=== PATIENT | male | born 1995 | race Caucasian/White ===

== ENCOUNTER 2016-06-13 22:53 | Emergency (ER) | payer BC ==
[~2016-06-13] VITALS: Ht 175.3 cm; Wt 85.5 kg
[~2016-06-13 22:53] MED LIST: ABILIFY5 MG PO; ADD MED; AMOXICILLIN 8751 TAB PO; CELEXA; DOXYCYCLINE 10100 MG PO; FLOMAX 0.40.4 MG/CAP PO; INTUNIV1 MG PO; LORTAB 5/500 501 TAB PO; NO HOME MEDICATIONS; NORCO 325 MG-51 TAB PO; NORCO 325 MG-7.1 TAB PO; NORTRIPTYLINE10 MG PO; OTC SLEEP MED; PERCOCET 325 MG1 TA2 PO; PREVACID 15MG15 M1 PO; VYVANSE PO; ZITHROMAX 250M250 MG PO; ZOFRAN 4MG T4 MG/TAB PO; [UNRECOGNIZED DRUG - OTHER]
[2016-06-13 22:57] VITALS: TEMP 97.4
[2016-06-13 23:34] LABS: BASO # 0.1 (0.0-0.2); BASO % 0.7 % (0.0-2.0); EOS # 0.3 (0.0-0.7); EOS % 1.9 % (0-4.0); GRAN # 12.7 (1.4-6.5); GRAN % 76.3 % (42.2-75.2); HEMATOCRIT 46.1 % (42.0-52.0); HEMOGLOBIN 15.5 g/dl (13.5-18.0); LYMPH # 2.2 (1.2-3.4); LYMPH % 12.9 % (20.0-51.0); MEAN CELL VOLUME 90 fl (80.0-100.0); MEAN CORPUSCULAR HEMOGLOBIN 30 pg (27.0-31.0); MEAN CORPUSCULAR HGB CONC 34 g/dl (33.0-37.0); MEAN PLATELET VOLUME 9.8 fl (7.4-10.4); MONO # 1.3 (0.1-0.6); MONO % 7.8 % (1.7-9.3); PLATELET COUNT 278 K/mm3 (130-400); RED BLOOD COUNT 5.15 M/mm3 (4.20-5.60); REDCELL DISTRIBUTION WIDTH-CV 12.8 % (11.5-14.5); WHITE BLOOD COUNT 16.6 K/mm3 (4.8-10.8)
[2016-06-13 23:44] LABS: ACETAMINOPHEN < 10 ug/mL (10-30); ANION GAP 13 mmol/L (7-16); BLOOD UREA NITROGEN 17 mg/dL (9-20); CALCIUM 9.3 mg/dL (8.4-10.2); CARBON DIOXIDE 27 mmol/L (22-30); CHLORIDE 104 mmol/L (98-107); CREATININE, serum 1.05 mg/dL (0.66-1.25); GLUCOSE 113 mg/dL (74-106); POTASSIUM 3.8 mmol/L (3.4-5.0); SALICYLATE < 1.0 mg/dL; SODIUM 144 mmol/L (137-145)
[2016-06-13 23:49] LABS: AMPHETAMINE URINE NEGATIVE; BARBITURATES URINE NEGATIVE; BENZODIAZEPINES URINE NEGATIVE; BUPRENORPHINE URINE NEGATIVE; METHADONE URINE NEGATIVE; OPIATES URINE NEGATIVE; OXYCODONE URINE NEGATIVE; PHENCYCLIDINE URINE NEGATIVE; PROPOXYPHENE URINE NEGATIVE; THC CANNABINOIDS URINE POSITIVE
[2016-06-14 02:38] VITALS: BP 117/80
[2016-06-14 07:05] VITALS: PULSE 90
== END 2016-06-14 07:07 ==
LOC: COL.ER 22:53
PROVIDERS: Emergency Medicine
DX: F31.2 Bipolar disorder, current episode manic severe with psychotic features (principal); R45.851 Suicidal ideations

== ENCOUNTER 2016-09-13 18:06 | Emergency (ER) | payer BC ==
[~2016-09-13] VITALS: Ht 165.1 cm; Wt 83.6 kg
[2016-09-13 18:07] VITALS: TEMP 97.9
[2016-09-13 18:33] LABS: BASO # 0.1 (0.0-0.2); BASO % 0.7 % (0.0-2.0); GRAN # 7.2 (1.4-6.5); GRAN % 52.3 % (42.2-75.2); HEMATOCRIT 48.6 % (42.0-52.0); HEMOGLOBIN 16.6 g/dl (13.5-18.0); LYMPH # 4.6 (1.2-3.4); LYMPH % 33.2 % (20.0-51.0); MEAN CELL VOLUME 88 fl (80.0-100.0); MEAN CORPUSCULAR HEMOGLOBIN 30 pg (27.0-31.0); MEAN CORPUSCULAR HGB CONC 34 g/dl (33.0-37.0); MEAN PLATELET VOLUME 9.8 fl (7.4-10.4); MONO # 0.9 (0.1-0.6); MONO % 6.4 % (1.7-9.3); PLATELET COUNT 348 K/mm3 (130-400); REDCELL DISTRIBUTION WIDTH-CV 12.7 % (11.5-14.5); WHITE BLOOD COUNT 13.7 K/mm3 (4.8-10.8)
[2016-09-13 18:47] LABS: ALANINE AMINOTRANSFERASE 28 U/L (21-72); ALKALINE PHOSPHATASE 60 U/L (50-136); ANION GAP 19 mmol/L (7-16); BILIRUBIN,TOTAL 1.8 mg/dL (0.0-1.0); BLOOD UREA NITROGEN 11 mg/dL (9-20); CALCIUM 9.8 mg/dL (8.4-10.2); CARBON DIOXIDE 20 mmol/L (22-30); CHLORIDE 103 mmol/L (98-107); CREATININE, serum 0.91 mg/dL (0.66-1.25); GLUCOSE 159 mg/dL (74-106); POTASSIUM 4.2 mmol/L (3.4-5.0); SODIUM 142 mmol/L (137-145); TOTAL PROTEIN 7.9 gm/dL (6.4-8.2)
[2016-09-13 18:48] LABS: ACETAMINOPHEN < 10 ug/mL (10-30); SALICYLATE < 1.0 mg/dL
[2016-09-13] MEDS ORDERED: LEXAPRO20 MG PO (19:13)
[2016-09-13] MEDS ORDERED: CELEXA10 MG (19:13)
[2016-09-13] MEDS ORDERED: KLONOPIN2 MG PO (19:28)
[2016-09-13] MEDS ORDERED: EFFEXOR 3737.5 MG/TA (19:29)
[2016-09-13 19:47] LABS: AMPHETAMINE URINE NEGATIVE; BARBITURATES URINE NEGATIVE; BENZODIAZEPINES URINE POSITIVE; BUPRENORPHINE URINE NEGATIVE; METHADONE URINE NEGATIVE; OPIATES URINE NEGATIVE; OXYCODONE URINE NEGATIVE; PHENCYCLIDINE URINE NEGATIVE; PROPOXYPHENE URINE NEGATIVE; THC CANNABINOIDS URINE POSITIVE
[2016-09-14 05:49] VITALS: BP 118/77; PULSE 63
== END 2016-09-14 05:45 ==
LOC: COL.ER 18:06
PROVIDERS: Emergency Medicine
DX: T14.91 Suicide attempt (principal); X83.8XXA Intentional self-harm by other specified means, initial encounter; Y92.003 Bedroom of unspecified non-institutional (private) residence as the place of occurrence of the external cause; R42 Dizziness and giddiness

== ENCOUNTER 2016-12-13 11:13 | Emergency (ER) | payer BC ==
[~2016-12-13] VITALS: Ht 175.3 cm; Wt 86.4 kg
[~2016-12-13 11:13] MED LIST changes: +CELEXA10 MG; +EFFEXOR 3737.5 MG/TA; +KLONOPIN2 MG PO; +LEXAPRO20 MG PO
[2016-12-13 11:24] VITALS: TEMP 97.8
[2016-12-13 13:17] LABS: PH 7 (5-8); SQUAMOUS EPITHELIAL None Seen /hpf; URINE APPEARANCE Clear; URINE BACTERIA None Seen /hpf; URINE BILIRUBIN Negative (NEGATIVE); URINE BLOOD Negative (NEGATIVE); URINE COLOR Straw; URINE GLUCOSE Negative (NEGATIVE); URINE KETONE Negative (NEGATIVE); URINE RBC 0-2 /hpf; URINE UROBILINOGEN Negative (NEGATIVE); URINE WBC 0-2 /hpf
[2016-12-13] MEDS ORDERED: NORCO 325 MG-51 TAB PO (13:50)
[2016-12-13] MEDS ORDERED: DOXYCYCLINE 10100 MG PO (13:50)
[2016-12-13 13:58] VITALS: BP 110/76; PULSE 62
[2016-12-13 15:06] LABS: CHLAMYDIA/TRACH by PCR Male NOT DETECTED; Neisseria Gon by PCR Male NOT DETECTED
== END 2016-12-13 14:04 | disposition home or self-care (01) ==
LOC: COL.ER 11:13
PROVIDERS: Family Medicine
DX: N45.3 Epididymo-orchitis (principal)
CPT/HCPCS: J1170; J2550

== ENCOUNTER 2017-05-28 18:43 | Emergency (ER) | payer BC ==
[~2017-05-28] VITALS: Ht 175.3 cm; Wt 84.1 kg
[2017-05-28 18:48] VITALS: BP 142/90; TEMP 97.6
[2017-05-28] MEDS ORDERED: FLEXERIL 1010 MG/TAB PO (20:53)
[2017-05-28 21:06] VITALS: PULSE 78
== END 2017-05-28 21:06 | disposition home or self-care (01) ==
LOC: COL.ER 18:43
DX: S06.0X9A Concussion with loss of consciousness of unspecified duration, initial encounter (principal); S33.9XXA Sprain of unspecified parts of lumbar spine and pelvis, initial encounter; F31.9 Bipolar disorder, unspecified; F12.90 Cannabis use, unspecified, uncomplicated; F17.290 Nicotine dependence, other tobacco product, uncomplicated; V29.3XXA Motorcycle rider (driver) (passenger) injured in unspecified nontraffic accident, initial encounter; Y93.55 Activity, bike riding

== ENCOUNTER 2019-06-06 09:34 | Emergency (ER) | payer BC ==
[~2019-06-06] VITALS: Ht 175.3 cm; Wt 109.1 kg
[~2019-06-06 09:34] MED LIST changes: +AMBIEN CR 12.12.5 MG PO; +CELEXA 20MG20 MG/TAB; +FLEXERIL 1010 MG/TAB PO; +LATUDA60 MG PO; +PAXIL 30MG30 MG PO
[2019-06-06 09:48] VITALS: TEMP 99.1
[2019-06-06] MEDS ORDERED: LATUDA80 MG PO (09:59)
[2019-06-06] MEDS ORDERED: PROZAC60 MG PO (10:00)
[2019-06-06 10:14] LABS: COLLECTION METHOD CLEAN CATCH
[2019-06-06 10:17] LABS: BASO # 0.1 (0.0-0.2); BASO % 0.7 % (0.0-2.0); EOS # 0.3 (0.0-0.7); EOS % 4.6 % (0-4.0); GRAN # 3.2 (1.4-6.5); GRAN % 47.1 % (42.2-75.2); HEMATOCRIT 46.8 % (42.0-52.0); HEMOGLOBIN 16.3 g/dl (13.5-18.0); LYMPH # 2.3 (1.2-3.4); LYMPH % 33.2 % (20.0-51.0); MEAN CELL VOLUME 93 fl (80.0-100.0); MEAN CORPUSCULAR HEMOGLOBIN 32 pg (27.0-31.0); MEAN CORPUSCULAR HGB CONC 35 g/dl (33.0-37.0); MEAN PLATELET VOLUME 9.5 fl (7.4-10.4); MONO % 14.1 % (1.7-9.3); PLATELET COUNT 234 K/mm3 (130-400); RED BLOOD COUNT 5.06 M/mm3 (4.20-5.60); REDCELL DISTRIBUTION WIDTH-CV 13.1 % (11.5-14.5)
[2019-06-06 10:20] LABS: MUCOUS Present /lpf; PH 6 (5-8); SQUAMOUS EPITHELIAL 0-2 /hpf; URINE APPEARANCE Clear; URINE BACTERIA None Seen /hpf; URINE BILIRUBIN Negative (NEGATIVE); URINE BLOOD 1+ (NEGATIVE); URINE COLOR Yellow; URINE GLUCOSE Negative (NEGATIVE); URINE KETONE Trace (NEGATIVE); URINE LEUKOCYTE ESTERASE Negative (NEGATIVE); URINE NITRATE Negative (NEGATIVE); URINE PROTEIN(semi-quant) 1+ (NEGATIVE); URINE RBC None Seen /hpf
[2019-06-06 10:31] LABS: ALBUMIN 4.9 gm/dL (3.5-5.0); BILIRUBIN,TOTAL 1.2 mg/dL (0.0-1.0); CALCIUM 9.3 mg/dL (8.4-10.2); CREATININE, serum 0.75 (0.66-1.25); POTASSIUM 3.7 mmol/L (3.4-5.0); TOTAL PROTEIN 8.8 gm/dL (6.4-8.2)
[2019-06-06] MEDS ORDERED: NORCO 325 MG-51 TAB PO (12:05)
[2019-06-06 12:11] VITALS: BP 138/79; PULSE 90
== END 2019-06-06 12:21 | disposition home or self-care (01) ==
LOC: COL.ER 09:34
PROVIDERS: Family Medicine
DX: R10.9 Unspecified abdominal pain (principal); F41.9 Anxiety disorder, unspecified
CPT/HCPCS: J2270; J2405; J7030; Q9967

== ENCOUNTER 2019-10-28 16:16 | Inpatient (IN) | payer BC, MEDICAID ==
[2019-10-28] VITALS (42 sets, daily range): BP systolic 118; BP diastolic 70; PULSE 84; TEMP 98.5; O2SAT 90–98
[~2019-10-28] VITALS: Ht 175.3 cm; Wt 98.5 kg
[~2019-10-28 16:16] MED LIST changes: +LATUDA80 MG PO; +PROZAC60 MG PO
[2019-10-28 17:34] LABS: INR 1.8 (0.8-3.0); PROTHROMBIN TIME 20.4 SECONDS (9.7-12.8)
[2019-10-28 17:35] LABS: BASO # 0.1 (0.0-0.2); BASO % 0.9 % (0.0-2.0); EOS # 0.2 (0.0-0.7); EOS % 1.8 % (0-4.0); GRAN % 72.8 % (42.2-75.2); HEMATOCRIT 41.6 % (42.0-52.0); LYMPH # 1.6 (1.2-3.4); LYMPH % 12.7 % (20.0-51.0); MEAN CELL VOLUME 92 fl (80.0-100.0); MEAN CORPUSCULAR HEMOGLOBIN 33 pg (27.0-31.0); MEAN CORPUSCULAR HGB CONC 36 g/dl (33.0-37.0); MEAN PLATELET VOLUME 10.3 fl (7.4-10.4); MONO # 1.4 (0.1-0.6); MONO % 11.2 % (1.7-9.3); PLATELET COUNT 132 K/mm3 (130-400); RED BLOOD COUNT 4.53 M/mm3 (4.20-5.60); REDCELL DISTRIBUTION WIDTH-CV 18.2 % (11.5-14.5)
[2019-10-28 17:42] LABS: ALANINE AMINOTRANSFERASE 112 U/L (4-49); ALBUMIN 3.7 gm/dL (3.5-5.0); ALCOHOL(ethanol),MEDICAL 183 mg/dL; ALKALINE PHOSPHATASE 225 U/L (50-136); ANION GAP 12 mmol/L (7-16); AST,SGOT 461 U/L (15-37); BILIRUBIN,TOTAL 7.3 mg/dL (0.0-1.0); C-REACTIVE PROTEIN 4.1 mg/dL (0.0-0.9); CALCIUM 8.5 mg/dL (8.4-10.2); CARBON DIOXIDE 30 mmol/L (22-30); CHLORIDE 94 mmol/L (98-107); CREATININE, serum 0.74 (0.66-1.25); GLUCOSE 115 mg/dL (74-106); LIPASE 112 U/L (23-300); POTASSIUM 3.1 mmol/L (3.4-5.0); SODIUM 137 mmol/L (137-145); TOTAL PROTEIN 8.5 gm/dL (6.4-8.2)
[2019-10-28 17:44] LABS: ACETAMINOPHEN < 10 ug/mL (10-30); BLOOD UREA NITROGEN < 2 mg/dL (9-20); SALICYLATE < 1.0 mg/dL
[2019-10-28 18:45] LABS: COLLECTION METHOD CLEAN CATCH
[2019-10-28 18:52] LABS: PH 7 (5-8); SQUAMOUS EPITHELIAL None Seen /hpf; URINE APPEARANCE Clear; URINE BACTERIA Rare /hpf; URINE BILIRUBIN Negative (NEGATIVE); URINE BLOOD Negative (NEGATIVE); URINE COLOR Yellow; URINE GLUCOSE Negative (NEGATIVE); URINE KETONE Negative (NEGATIVE); URINE LEUKOCYTE ESTERASE Negative (NEGATIVE); URINE NITRATE Negative (NEGATIVE); URINE PROTEIN(semi-quant) Negative (NEGATIVE); URINE RBC None Seen /hpf; URINE UROBILINOGEN >=4.0 mg/dL (NEGATIVE)
[2019-10-28 19:17] LABS: TRICYCLIC ANTIDEPRESS URINE NEGATIVE
--- NOTE | 2019-10-28 22:25 | NUR ---
PT ARRIVED IN UNIT, ALERT AND ORIENTED X 4, DENIES ANY THOUGHTS/PLANS OF HARMING SELF, COMPLAINS OF GENERALIZED PAIN 6/10, ON O2 2 LPM. VSS UPON ARRIVAL. PT AWARE OF NO VISITATION POLICY AND PT PLACED ON SI PRECAUTIONS. PT VERBALIZED UNDERSTANDING OF SI PRECAUTIONS BEING FOLLOWED/OBSERVED. ALL BELONGINGS LOCKED UP IN SAFE.
[2019-10-29] VITALS (503 sets, daily range): BP systolic 105–147; BP diastolic 66–98; PULSE 23–110; TEMP 98.2–99.5; O2SAT 90–100
--- NOTE | 2019-10-29 01:09 | NUR ---
PT SCORING 6 PER CIWA PROTOCOL, HAS NO MEDICATION ORDERED FOR CORRESPONDING SCORE. DR. PINEDA CALLED AND NOTIFIED, AND VERBALIZED HE WILL PUT ORDERS IN SOON HE CAN. AWAITING FOR ORDERS.
--- NOTE | 2019-10-29 04:57 | NUR ---
DR. PINEDA AT BEDSIDE.
--- NOTE | 2019-10-29 05:50 | NUR ---
GI DR AT BEDSIDE TO EVALUATE PT.
--- NOTE | 2019-10-29 06:43 | NUR ---
PT'S POTASSIUM AT 3.1, NO REPLACEMENT ORDERED AND NOT ON POTASSIUM PROTOCOL. UPON READING DR. PINEDA'S NOTE, PLANNING TO REPLACE POTASSIUM. WILL PASS THIS ALONG TO ONCOMING DAY SHIFT NURSE.
--- NOTE | 2019-10-29 07:39 | NUR ---
Call received from Dr. Fitzgerald to schedule patient for EGD today and to place routine EGD orders. Anesthesia notified as well as scheduling. Patient agreable to procedure.
--- NOTE | 2019-10-29 11:40 | NUR ---
Due to the patient's condition, Carpenter Supervisor Wooden Ship contacted the patient's mother, Jerri ([phone]) to complete intial intake. The patient lives in [place] with Jerri and his sister. The patient does not use DME and is independent with ADLs. The patient's PCP is Dr. Motta and patient receives medications from [facility]. The patient sees Dr. Brooklyn Kincaid with [facility] once a week. Jerri states the patient has been going to see her for about a year. The patient had a session yesterday, 10/[address] Kincaid set up for the patient to go to [place] in due to SI. However, Jerri reports since the patient come to the hospital the spot that was reserved for the patient was given away. Jerri would like the patient to go home at discharge, if able. SW will continue to follow.
--- NOTE | 2019-10-29 12:36 | NUR ---
Patient to endoscopy via bed and endo staff at 1043. Patient returned to IMCU via bed and endo staff at 1117. Patient alert and oriented. States pain is returning 6/10 and that he is thirsty but not other concerns at this time.
--- NOTE | 2019-10-29 14:09 | NUR ---
Wireless Architect staffed with the patient's nurse regarding the patient. Once the patient is medically cleared he will be screen by [facility] or [facility]. Will continue to follow.
--- NOTE | 2019-10-29 19:30 | NUR ---
PATIENT GOT TO THE FLOOR AROUND 1924.
--- NOTE | 2019-10-29 21:59 | NUR ---
VERIFIED WITH DUSTLESS OPERATOR ABOUT THE PATIENT WANTING TO MAKE A PHONE CALL. PATIENT CALLED HIS MOTHER WHILE THIS NURSE OBSERVED THE PHONE CALL. PATIENT WAS GIVEN A PAIN PILL AND SOME ATIVAN AND THEN TUCKED HIMSELF INTO BED.
[2019-10-30] VITALS (31 sets, daily range): BP systolic 124–142; BP diastolic 71–85; PULSE 72–118; TEMP 97.8–98.9
--- NOTE | 2019-10-30 01:58 | NUR ---
patient called out for some pain medication and something for nausea. patient was very neausis and asked for something to throw up in. patient just coughed really hard but nothing came up. zofran odt was given to help with the nausea and then ativan and dafne were given. will continue to monitor
--- NOTE | 2019-10-30 04:35 | NUR ---
AFTER RECIEVING ZOFRAN, NAUSEA SEEMED TO SUBSIDE. PATIENT STILL CONTINUES TO COMPLAIN ABOUT PAIN ALL OVER IN HIS BODY. PAIN MEDICATIONS ARE GIVEN WHEN ASKED SOON THEY ARE AVALIABLE TO BE GIVEN. PATIENT BLOOD PRESSURE HAS INCREASED SLIGHLY I BELIEVE DUE TO SOME PAIN THAT HE IS EXPERIENCING. PATIENT APPEARS TO BE SLEEPING BUT STATES THAT HE HAS BEEN AWAKE FOR SOME PARTS OF THE NIGHT DUE TO PAIN. PATIENT HAS IV THAT INFUSING WITH IV FLUIDS. PATIENT BELONGINGS ARE AT THE NURSES STATION. PATIENT IS IN A [facility]OWN. PATIENT DENIES ANY OTHER NEEDS AT THIS TIME. WILL REPORT OFF TO DAY SHIFT
[2019-10-30 06:55] LABS: BASO # 0.1 (0.0-0.2); BASO % 0.9 % (0.0-2.0); EOS # 0.3 (0.0-0.7); EOS % 2.5 % (0-4.0); GRAN # 7.1 (1.4-6.5); GRAN % 66.7 % (42.2-75.2); HEMATOCRIT 41.3 % (42.0-52.0); HEMOGLOBIN 14.3 g/dl (13.5-18.0); LYMPH # 2.2 (1.2-3.4); LYMPH % 20.3 % (20.0-51.0); MEAN CELL VOLUME 95 fl (80.0-100.0); MEAN CORPUSCULAR HEMOGLOBIN 33 pg (27.0-31.0); MEAN CORPUSCULAR HGB CONC 35 g/dl (33.0-37.0); MEAN PLATELET VOLUME 10.8 fl (7.4-10.4); MONO % 9.3 % (1.7-9.3); PLATELET COUNT 97 K/mm3 (130-400); RED BLOOD COUNT 4.33 M/mm3 (4.20-5.60); REDCELL DISTRIBUTION WIDTH-CV 19.2 % (11.5-14.5)
--- NOTE | 2019-10-30 07:00 | NUR ---
Pt resting in bed, awakens upon entry, denies needs, will continue ot monitor.
[2019-10-30 07:19] LABS: ALBUMIN 3.2 gm/dL (3.5-5.0); CALCIUM 8.6 mg/dL (8.4-10.2); CREATININE, serum 0.67 (0.66-1.25); MAGNESIUM 1.5 mg/dL (1.6-2.3); POTASSIUM 3.5 mmol/L (3.4-5.0); TOTAL PROTEIN 7.6 gm/dL (6.4-8.2)
[2019-10-30 07:22] LABS: INR 1.9 (0.8-3.0); PROTHROMBIN TIME 21.6 SECONDS (9.7-12.8)
--- NOTE | 2019-10-30 09:00 | NUR ---
Assessmetn charted. Pt reting in bed, c/o nausea but able to take PO well, PRN nausea meds given. Scored pt higher in CIWA protocol for nausea and being awake at night. Pt resting quietly, takin CL diet well. Very jaundiced. L inner arm wounds from pet pig noted and will notify physician. IVF to RA/C. Will continue to monitor.
--- NOTE | 2019-10-30 18:07 | NUR ---
Pt ahs rested off and on throughout day. Nausea persists, chronic back and arm pain persists. Resting often, sets off bed alarm to urinate. Did have auditory hallucinations this morning that have since resolved. Denies needs, will give bedside shift report to nightshift nurse who will resume care.
--- NOTE | 2019-10-30 21:02 | NUR ---
REPORT GIVEN TO DAVID CR
--- NOTE | 2019-10-30 22:10 | NUR ---
Pt awake- sitting up in bed- trying to stand at edge of bed- assisted to stand--using urinal- voided clear dark petrona urine. States he is in alot of pain in his muscles 11/21-will give roxicodone as ordered-also on detox-will give 1 mg Ativam at this time also-- IV fluids continue at 75cc/hr- Flat affect, answers questions appropriately--Lung sounds clear, denies SOB.
[2019-10-31] VITALS (26 sets, daily range): BP systolic 121–142; BP diastolic 64–89; PULSE 79–108; TEMP 97.7–99.1
--- NOTE | 2019-10-31 06:00 | NUR ---
Overall a quiet night, is getting the p.o Roxicodone for muscle pain every 4 hrs prn. On detox protocol, was given Ativan x2 this shift based on score. On suicide precautions-with 15 min checks. Continues with IV fluids of NS a 75cc/hr. Did void per urinal- very dark/orange/brown color this morning.
[2019-10-31 07:38] LABS: BASO # 0.1 (0.0-0.2); BASO % 0.6 % (0.0-2.0); EOS # 0.3 (0.0-0.7); EOS % 2.9 % (0-4.0); GRAN # 7.6 (1.4-6.5); GRAN % 65.8 % (42.2-75.2); HEMATOCRIT 38.2 % (42.0-52.0); HEMOGLOBIN 13.3 g/dl (13.5-18.0); LYMPH # 2.3 (1.2-3.4); MEAN CELL VOLUME 96 fl (80.0-100.0); MEAN CORPUSCULAR HEMOGLOBIN 33 pg (27.0-31.0); MEAN CORPUSCULAR HGB CONC 35 g/dl (33.0-37.0); MEAN PLATELET VOLUME 11.4 fl (7.4-10.4); MONO # 1.2 (0.1-0.6); MONO % 10.3 % (1.7-9.3); PLATELET COUNT 86 K/mm3 (130-400); RED BLOOD COUNT 3.99 M/mm3 (4.20-5.60); REDCELL DISTRIBUTION WIDTH-CV 19.5 % (11.5-14.5)
[2019-10-31 07:50] LABS: BILIRUBIN,TOTAL 10.2 mg/dL (0.0-1.0); CALCIUM 8.6 mg/dL (8.4-10.2); CREATININE, serum 0.72 (0.66-1.25); TOTAL PROTEIN 7.2 gm/dL (6.4-8.2)
--- NOTE | 2019-10-31 08:10 | NUR ---
PT ALERT AND ORIENTED X4. PT REPORTS MUSCLE ACHES AND HEADACHE. FRESH ICE WATER BROUGHT IN TO PT, MEDICATIONS GIVEN, PAIN MEDICATION GIVEN, FLUSHED PT IV, ASSESSMENT PERFORMED. PT HAS TREMOR WITH ARM EXTENDED. PT HAS FLAT AFFECT.
--- NOTE | 2019-10-31 10:29 | NUR ---
PT REPORTING INC MUSCLE PAIN AND HEADACHES AND NAUSEA. ZOFRAN GIVEN, VITALS TAKEN, ATIVAN GIVEN. NO OTHER NEEDS AT THIS TIME.
--- NOTE | 2019-10-31 17:18 | NUR ---
PT TAKEN OFF Q15 CHECKS PER PHYSICIAN ORDERS. PT LAID IN BED ALL DAY WITH WINDOWS CLOSED AND LIGHTS OFF. PT HAS FLAT AFFECT PRESENT. PT REQUESTING PAIN MEDICATION WHENEVER DUE, PT REPORTS NO RELIEF WITH PHARMACOLOGICAL INTERVENTION. PT REPORTED NAUSEA EARLIER IN SHIFT NOT RELIEVED BY ZOFRAN, BUT EVENTUALLY WENT AWAY. PT HAS GOOD PO INTAKE OF FLUIDS. PT TALKED TO HIS MOTHER TODAY. NO OTHER NEEDS AT THIS TIME.
[2019-11-01] VITALS (16 sets, daily range): BP systolic 110–136; BP diastolic 62–84; PULSE 80–99; TEMP 97.7–99.5
--- NOTE | 2019-11-01 05:42 | NUR ---
PATIENT HAD AN UNEVENTFUL NIGHT. PATIENT RECIEVED ATIVAN X2 DURING THE SHIFT. PATIENT HAS A VERY SOMBER AFFECT. PATIENT REPORTED ALL OVER BODY PAIN AND PRN MARILUZ WAS GIVEN TO HIM. PATIENT HAS REMAINED ALERT AND ORIENTATED. PATIENT IS NPO FOR A TEST THIS MORNING. DENIES ANY OTHER NEEDS, WILL REPORT OFF TO DAY SHIFT.
[2019-11-01 06:43] LABS: BASO # 0.1 (0.0-0.2); BASO % 0.9 % (0.0-2.0); EOS # 0.3 (0.0-0.7); GRAN # 7.2 (1.4-6.5); GRAN % 65.6 % (42.2-75.2); HEMATOCRIT 38.5 % (42.0-52.0); HEMOGLOBIN 13.2 g/dl (13.5-18.0); LYMPH # 1.9 (1.2-3.4); LYMPH % 17.4 % (20.0-51.0); MEAN CELL VOLUME 98 fl (80.0-100.0); MEAN CORPUSCULAR HEMOGLOBIN 33 pg (27.0-31.0); MEAN CORPUSCULAR HGB CONC 34 g/dl (33.0-37.0); MEAN PLATELET VOLUME 12.1 fl (7.4-10.4); MONO # 1.4 (0.1-0.6); MONO % 12.6 % (1.7-9.3); PLATELET COUNT 110 K/mm3 (130-400); RED BLOOD COUNT 3.95 M/mm3 (4.20-5.60); REDCELL DISTRIBUTION WIDTH-CV 20.3 % (11.5-14.5)
[2019-11-01 07:40] LABS: ALBUMIN 2.8 gm/dL (3.5-5.0); BILIRUBIN,TOTAL 9.3 mg/dL (0.0-1.0); CALCIUM 8.5 mg/dL (8.4-10.2); CREATININE, serum 0.64 (0.66-1.25); MAGNESIUM 1.7 mg/dL (1.6-2.3); TOTAL PROTEIN 6.8 gm/dL (6.4-8.2)
--- NOTE | 2019-11-01 12:06 | NUR ---
PT RESTING IN BED LIGHTS LOW.VSS PT DENIES NEEDS.
--- NOTE | 2019-11-01 14:52 | NUR ---
PT CONTINUES TO SHOW DEPRESSIVE BEHAVIOR WANTING TO SLEEP AND REFUSING MEALS.
--- NOTE | 2019-11-01 22:30 | NUR ---
Pt assessment completed and charted, alert and oriented, 2 liter oxygen on NC. I/V is running without complications. Meds provided as per JUN,tolerated well. No N/V/D, numbness, tingling, SOB at this time. Settled on his bed, call light on reach. Pt seems hegitated to have eye contact. Gave PRN pain meds on pt request. No further needs at this time.
[2019-11-02] VITALS (16 sets, daily range): BP systolic 115–137; BP diastolic 61–88; PULSE 84–104; TEMP 97.2–99.9
--- NOTE | 2019-11-02 06:43 | NUR ---
Pt had an uneventful night, slept on and off. Provided morning meds along with PRN pain meds on pt request. No further needs at this time.
[2019-11-02 06:58] LABS: HEMATOCRIT 37.4 % (42.0-52.0); HEMOGLOBIN 13.1 g/dl (13.5-18.0); MEAN CELL VOLUME 95 fl (80.0-100.0); MEAN CORPUSCULAR HEMOGLOBIN 33 pg (27.0-31.0); MEAN CORPUSCULAR HGB CONC 35 g/dl (33.0-37.0); MEAN PLATELET VOLUME 11.2 fl (7.4-10.4); PLATELET COUNT 90 K/mm3 (130-400); RED BLOOD COUNT 3.93 M/mm3 (4.20-5.60); REDCELL DISTRIBUTION WIDTH-CV 20.2 % (11.5-14.5)
[2019-11-02 07:26] LABS: ALBUMIN 2.8 gm/dL (3.5-5.0); BILIRUBIN,TOTAL 8.7 mg/dL (0.0-1.0); CALCIUM 8.5 mg/dL (8.4-10.2); CREATININE, serum 0.69 (0.66-1.25); POTASSIUM 4.2 mmol/L (3.4-5.0); TOTAL PROTEIN 6.8 gm/dL (6.4-8.2)
[2019-11-02 07:29] LABS: BAND 14 % (0-10); BASOPHIL 1 % (0-2); EOSINOPHIL 3 % (0-4); LYMPHOCYTE 21 % (20.0-51.0); METAMYELOCYTE 1 % (0-0); NEUTROPHILS 53 % (42.0-75.2); PLATELET ESTIMATE DECREASED (NORMAL); TARGET CELLS 1+
--- NOTE | 2019-11-02 07:29 | NUR ---
Report given to DAVID Kasper.
--- NOTE | 2019-11-02 09:17 | NUR ---
Assessment complete. Patient laying in bed resting on entry but sat up to speak with me. States he feels better than he did this morning. Reports some pain still on his right side that radiates down his leg and a little up his right arm, PRN pain medication has been provided for this. IV site is CD&I, IV fluids infusing at this time. Patient is alert and oriented x4. No visible tremors on assessment or notable anxiety. Patient was conversational and made moderate eye contact while speaking with me. Bed alrm is set, suicide and fall precautions are in place. No other needs were expressed at this time. Call light is in reach.
--- NOTE | 2019-11-02 09:31 | NUR ---
Patient did refuse breakfast but requested a protein shake as he prefers these. This was provided, needs met.
--- NOTE | 2019-11-02 12:14 | NUR ---
Patient called reporting pain and nausea. PRN pain and nausea medication was provided for this. Left arm laceration/scab was cleansed with saline and redressed. New dressing is CD&I, no pain reported. Vitals assessed. No anxiety present, tremors are also absent. No other needs at this time. Call light is in reach. Bed alarm set.
--- NOTE | 2019-11-02 18:05 | NUR ---
Patient has had a good day. PRN pain and nausea medication were given throughout the day for abdominal pain and episodes of nausea. Otherwise patient was relatively conversational with me. Pulse remains in the 90s but other vitals are stable. No visible signs of detox at this time. No suicidal behaviors or conversation. Mother has been updated over phone, patient also spoke with her using my phone. No other complaints from patient. Bowel prep has been administered, patient is aware to sip throughout the evening, finishing by 0000 is ideal but reminded him not to chug and make him self sick. No other requests at this time. Call light is in reach.
--- NOTE | 2019-11-02 20:30 | NUR ---
Initial shift assessment done- states abd pain about 7/10 most of the time, VSS. 02 at 2l/NC, up to bathroom with assist, having loose stools, on bowel prep, having colonoscopy in the AM,, Tele on, on detox protocol, scoring 2-3, no ativan given, on suicide precautions, close to desk-
[2019-11-03] VITALS (17 sets, daily range): BP systolic 115–155; BP diastolic 61–82; PULSE 59–93; TEMP 98–98.5
--- NOTE | 2019-11-03 01:00 | NUR ---
Has finished bowel prep- has been up to bathroom numerous times, stools clear at this time- NPO
--- NOTE | 2019-11-03 05:33 | NUR ---
Up to bathroom numerous times- stools clear. VSS, did not require any detox meds tonight, was given pain meds x2 for abd pain. NPO
[2019-11-03 07:06] LABS: HEMATOCRIT 37.1 % (42.0-52.0); HEMOGLOBIN 13.1 g/dl (13.5-18.0); MEAN CELL VOLUME 95 fl (80.0-100.0); MEAN CORPUSCULAR HEMOGLOBIN 34 pg (27.0-31.0); MEAN CORPUSCULAR HGB CONC 35 g/dl (33.0-37.0); MEAN PLATELET VOLUME 11.3 fl (7.4-10.4); PLATELET COUNT 97 K/mm3 (130-400); RED BLOOD COUNT 3.89 M/mm3 (4.20-5.60); REDCELL DISTRIBUTION WIDTH-CV 20.8 % (11.5-14.5)
[2019-11-03 07:09] LABS: INR 2.1 (0.8-3.0); PROTHROMBIN TIME 23.5 SECONDS (9.7-12.8)
[2019-11-03 07:15] LABS: ALBUMIN 2.9 gm/dL (3.5-5.0); BILIRUBIN,TOTAL 8.4 mg/dL (0.0-1.0); CALCIUM 8.5 mg/dL (8.4-10.2); CREATININE, serum 0.65 (0.66-1.25); POTASSIUM 3.7 mmol/L (3.4-5.0); TOTAL PROTEIN 6.9 gm/dL (6.4-8.2)
--- NOTE | 2019-11-03 08:02 | NUR ---
Assessment complete. Patient laying in bed on ebtry, easily arousable sleep. States he feels better than he did yesterday. Conversational this morning as he was yesterday. Latent mood and flat affect continue but patient makes eye contact while speaking and is cooperative. IV site is CD&I, IVF continue to infuse at this time. Patient is aware of his POC and plan for colonoscopy today. Pt has had one bowel movement already this morning, ambulated well. Patient currently back in bed resting until procedure. Call light is in reach, bed alarm is set. No other needs at this time.
[2019-11-03 08:31] LABS: ANISOCYTOSIS 1+; BAND 4 % (0-10); EOSINOPHIL 6 % (0-4); LYMPHOCYTE 28 % (20.0-51.0); NEUTROPHILS 49 % (42.0-75.2); PLATELET ESTIMATE DECREASED (NORMAL)
--- NOTE | 2019-11-03 10:06 | NUR ---
Patient arrived back from colonoscopy at this time. He is awake and alert, still droswy. Requested to use the restroom on arrival, I assisted with this. He ambulated well vua standby. New gown as provided as previous one was soiled. Vital signs are being monitored at this time. Will continue to monitor.
--- NOTE | 2019-11-03 10:45 | NUR ---
Property Handler met with the patient to discuss the discharge plan. The patient plans to return home. The patient states he see psychiatrist Gabe Florentino for medications. The patient states he has seen Dr. Motta in the past and would like to return there for primary care. IMANI contacted Dr. Motta office. The patient's appointment is set up for , November 10 at 12:15 check in time. IMANI informed infantry unit leader of appointment time. Will continue to follow.
--- NOTE | 2019-11-03 11:42 | NUR ---
Patient has been stable since arriving back from colonoscopy. Has been resting since recieving PRN pain medication earlier. Continuing to monitor, no other needs at this time. Call light is in reach. Bed alarm is set.
--- NOTE | 2019-11-03 16:51 | NUR ---
Patient has continued to rest for most of the day today. PRN pain medication was given when requested per orders, this manages his pain to a satisfactory degree. Patient was under the impression that he was supposed to go home today. I reminded him that when Dr. Swain spoke with him this morning he stated reching his labs in the morning and then possible discharge tomorrow. He was okay with this. I notified him that [facility] will be speaking with him via the Ipad for a consult later today, he agreed to this. Vitals have been stable, no tremors or obvious signs of detox. No other needs were expressed at this time. Call light is in reach. Bed alarm is set.
--- NOTE | 2019-11-03 20:50 | NUR ---
Pt assessment completed and documented. Pt resting in bed at this time. Pt alert and oriented x4. Complaints of generalized pain. PRN roxicodone given per orders per pt request. INT to right ac patent and intact. Pt refusing to eat dinner. Pt incontinent bowel on the floor on his way to the bathroom earlier in the evening. Pt on 2L O2 via nasal cannula. Pt denies any other needs. Call light within reach. Will continue to monitor.
[2019-11-04] VITALS (13 sets, daily range): BP systolic 90–138; BP diastolic 56–82; PULSE 67–82; TEMP 97.5–98.7
--- NOTE | 2019-11-04 05:20 | NUR ---
Pt had uneventful shift. Pt rested well throughout the night in his bed. VSS. On telemetry. Complaints of generalized pain last night- PRN roxicodone given per orders. Pt denies any other needs. Call light within reach.
[2019-11-04 09:02] LABS: BASO % 0.5 % (0.0-2.0); EOS % 0.1 % (0-4.0); GRAN % 73.8 % (42.2-75.2); HEMATOCRIT 37.8 % (42.0-52.0); HEMOGLOBIN 13.4 g/dl (13.5-18.0); LYMPH % 11.9 % (20.0-51.0); MEAN CELL VOLUME 94 fl (80.0-100.0); MEAN CORPUSCULAR HEMOGLOBIN 33 pg (27.0-31.0); MEAN CORPUSCULAR HGB CONC 35 g/dl (33.0-37.0); MEAN PLATELET VOLUME 10.9 fl (7.4-10.4); MONO % 12.8 % (1.7-9.3); PLATELET COUNT 112 K/mm3 (130-400); RED BLOOD COUNT 4.03 M/mm3 (4.20-5.60); REDCELL DISTRIBUTION WIDTH-CV 20.7 % (11.5-14.5)
[2019-11-04 09:12] LABS: BILIRUBIN,TOTAL 8.3 mg/dL (0.0-1.0); CALCIUM 8.7 mg/dL (8.4-10.2); CREATININE, serum 0.6 (0.66-1.25); POTASSIUM 3.9 mmol/L (3.4-5.0); TOTAL PROTEIN 7.2 gm/dL (6.4-8.2)
[2019-11-04 09:15] LABS: PROTHROMBIN TIME 22.1 SECONDS (9.7-12.8)
--- NOTE | 2019-11-04 10:51 | NUR ---
The patient was screened by Simi from [facility] on 11/02. A copy of the screen was placed in the patient's chart and they made a safety plan that he needed to sign. IMANI met with the patient to review the safety plan and he signed the form. IMANI faxed the form to [facility] and gave a copy to the patient. Original was placed in the chart. Will continue to monitor.
--- NOTE | 2019-11-04 12:13 | NUR ---
PATIENT IS RESTING IN BED, DID ASSIST PATIENT TO THE RESTROOM, WAS NOTIFIED TO GO TO PATIENTS ROOM BY BED ALARM BEING SET OFF. HE AMBULAED TO THE RESTOOM WITH STANDBY ASSISTANCE. DENIES PAIN. CALL LIGHT AND PERSONAL ITEMS ARE WITHIN REACH.
--- NOTE | 2019-11-04 18:29 | NUR ---
PATIENT IS RESTING IN BED ON LEFT SIDE. EYES ARE CLOSED, GRANDMOTHER DID CALL AND SPEAK WITH PATIENT ON A CORDLESS PHONE. NO OTHER NEEDS IDENTIFIED. CALL LIGHT IS WITHIN REACH.
--- NOTE | 2019-11-04 18:48 | NUR ---
ATTEMPTED TO REVIEW HOME MEDICATIONS WITH PATIENT AND HE IS UNSURE, ATTEMPTED TO REACH OUT TO FAMILY AND NO ANSWER RECEIVED.
--- NOTE | 2019-11-04 20:30 | NUR ---
Initial shift assessment done- states abd pain 10/21,,will give roxicodone as ordered, states feels like he is starting to get hungry, did not eat his clear liquid tray--states" Im tired of jello",,Up to bathroom with assist, still somewhat weak,,VSS, not scoring on detox protocol. Pt states he might go home tomorrow
[2019-11-05 00:48] VITALS: BP 116/68; PULSE 66; TEMP 98.3
[2019-11-05 01:09] VITALS: BP 116/73; PULSE 63; TEMP 98.3
[2019-11-05 04:11] VITALS: BP 104/67; PULSE 58; TEMP 97.7
[2019-11-05 06:05] VITALS: PULSE 62
--- NOTE | 2019-11-05 06:05 | NUR ---
Quiet night- only scoring a 1 on detox protocol- no ativan given, was given Roxicodone just once at start of shift for abd pain- voiding good amounts dark urine.
[2019-11-05 07:30] VITALS: BP 118/70; PULSE 63; TEMP 98.7
[2019-11-05 07:48] LABS: INR 1.6 (0.8-3.0); PROTHROMBIN TIME 18.2 SECONDS (9.7-12.8)
[2019-11-05 07:50] LABS: BASO % 0.3 % (0.0-2.0); EOS % 0.1 % (0-4.0); HEMATOCRIT 39.2 % (42.0-52.0); HEMOGLOBIN 13.7 g/dl (13.5-18.0); LYMPH # 1.5 (1.2-3.4); LYMPH % 14.8 % (20.0-51.0); MEAN CELL VOLUME 94 fl (80.0-100.0); MEAN CORPUSCULAR HEMOGLOBIN 33 pg (27.0-31.0); MEAN CORPUSCULAR HGB CONC 35 g/dl (33.0-37.0); MEAN PLATELET VOLUME 10.9 fl (7.4-10.4); MONO # 1.3 (0.1-0.6); MONO % 13.2 % (1.7-9.3); PLATELET COUNT 156 K/mm3 (130-400); RED BLOOD COUNT 4.19 M/mm3 (4.20-5.60); REDCELL DISTRIBUTION WIDTH-CV 21.1 % (11.5-14.5)
[2019-11-05 07:53] LABS: ALBUMIN 3.2 gm/dL (3.5-5.0); BILIRUBIN UNCONJUGATED 3.6 mg/dL (0.0-1.1); BILIRUBIN,DIRECT 3.6 mg/dL (0.0-0.4); BILIRUBIN,TOTAL 7.1 mg/dL (0.0-1.0); CREATININE, serum 0.67 (0.66-1.25); POTASSIUM 3.9 mmol/L (3.4-5.0); TOTAL PROTEIN 7.7 gm/dL (6.4-8.2)
--- NOTE | 2019-11-05 09:41 | NUR ---
The patient is to discharge home today, 11/04. The patient's grandmother will pick him up at 1400. The patient is to have a tele-health appointment with Psychiatrist, Dr. Florentino at approximately 4PM. There are no additional needs at this time.
[2019-11-05] MEDS ORDERED: FOLIC ACID 11 MG/TA1 PO (09:44)
[2019-11-05] MEDS ORDERED: THEREMS1 TAB PO (09:45)
[2019-11-05] MEDS ORDERED: PREDNISOLO15 MG/5 M3 PO (09:48)
[2019-11-05 11:47] VITALS: BP 112/67; PULSE 65; TEMP 98.6
--- NOTE | 2019-11-05 14:35 | NUR ---
PATIENT DC TO HOME VIA PRIVATE VEHICLE ACCOMPANIED BY GRANDMOTHER MORTGAGE CLOSING CLERK. PRINTED DC INSTRUCTIONS TO INCLUDE FOLLOW UP, CRISIS INTERVENTION, MEDICATIONS, AND HOSPITAL DISCHARGE DC REVIEWED WITH PATIENT. ALL QUESTIONS AND CONCERNS ADDRESSED DURING REVIEW. ACKNOWLED UNDERSTANDING AND DENIED QUESTIONS OR CONCERNS AFTER REVIEW. AMBULATED OFF UNIT TO VEHICLE ACCOMPANIED OUT OF BUILDING BY THIS NURSE.
== END 2019-11-05 14:00 | disposition home or self-care (01) | DRG 432 ==
LOC: COL.ER 16:16 → IMCU 20:29 → MEDICAL 20:29
PROVIDERS: Emergency Medicine; Family Medicine; Internal Medicine; Internal Medicine Gastroenterology; Physician Assistant; Student in an Organized Health Care Education/Training Program
PROC: 0DJ08ZZ Inspection of Upper Intestinal Tract, Via Natural or Artificial Opening Endoscopic (ICD-10-PCS; principal; 2019-10-29 11:00)
PROC: 0DJD8ZZ Inspection of Lower Intestinal Tract, Via Natural or Artificial Opening Endoscopic (ICD-10-PCS; 2019-11-03)
DX: K70.10 Alcoholic hepatitis without ascites (principal); K29.21 Alcoholic gastritis with bleeding; E44.0 Moderate protein-calorie malnutrition; D68.2 Hereditary deficiency of other clotting factors; F10.239 Alcohol dependence with withdrawal, unspecified; R45.851 Suicidal ideations; K71.0 Toxic liver disease with cholestasis; D69.6 Thrombocytopenia, unspecified; E87.6 Hypokalemia; K21.0 Gastro-esophageal reflux disease with esophagitis; R09.02 Hypoxemia; F41.9 Anxiety disorder, unspecified; K52.9 Noninfective gastroenteritis and colitis, unspecified; E83.42 Hypomagnesemia; F31.9 Bipolar disorder, unspecified; F13.10 Sedative, hypnotic or anxiolytic abuse, uncomplicated; Y90.6 Blood alcohol level of 120-199 mg/100 ml; E88.09 Other disorders of plasma-protein metabolism, not elsewhere classified; Z68.31 Body mass index [BMI] 31.0-31.9, adult
CPT/HCPCS: 99223-AI; 99232-AI; 99233-AI; C9113; J0780; J1170; J1200; J2060; J2250; J2405; J2704; J3010; J3411; J3475; J7030; J7510; Q9967

== ENCOUNTER 2020-01-22 16:21 | Inpatient (IN) | payer BC, MEDICAID ==
[~2020-01-22] VITALS: Ht 175.3 cm; Wt 94.9 kg
[~2020-01-22 16:21] MED LIST changes: +FOLIC ACID 11 MG/TA1 PO; +PREDNISOLO15 MG/5 M3 PO; +THEREMS1 TAB PO
[2020-01-22 16:53] LABS: HEMATOCRIT 42.9 % (42.0-52.0); HEMOGLOBIN 15.6 g/dl (13.5-18.0); MEAN CELL VOLUME 93 fl (80.0-100.0); MEAN CORPUSCULAR HEMOGLOBIN 34 pg (27.0-31.0); MEAN CORPUSCULAR HGB CONC 36 g/dl (33.0-37.0); MEAN PLATELET VOLUME 10.4 fl (7.4-10.4); PLATELET COUNT 137 K/mm3 (130-400); RED BLOOD COUNT 4.64 M/mm3 (4.20-5.60); REDCELL DISTRIBUTION WIDTH-CV 15.2 % (11.5-14.5)
[2020-01-22 16:56] LABS: PROTHROMBIN TIME 22.9 SECONDS (9.7-12.8)
[2020-01-22 17:03] LABS: ALBUMIN 3.8 gm/dL (3.5-5.0); BILIRUBIN,TOTAL 9.1 mg/dL (0.0-1.0); C-REACTIVE PROTEIN 2.6 mg/dL (0.0-0.9); CALCIUM 8.7 mg/dL (8.4-10.2); CREATININE, serum 0.85 (0.66-1.25); TOTAL PROTEIN 8.4 gm/dL (6.4-8.2)
[2020-01-22 17:33] LABS: EOSINOPHIL 2 % (0-4); LYMPHOCYTE 7 % (20.0-51.0); NEUTROPHILS 77 % (42.0-75.2)
[2020-01-22 17:35] LABS: PLATELET ESTIMATE NORMAL (NORMAL); TEAR DROP CELLS 1+
--- NOTE | 2020-01-22 21:59 | NUR ---
Received report from ED DAVID Cervantes.
--- NOTE | 2020-01-22 22:13 | NUR ---
Pt arrived to medical unit room 356 via stretcher.
[2020-01-22 22:18] VITALS: BP 126/69; PULSE 97; TEMP 98.4
--- NOTE | 2020-01-22 22:30 | NUR ---
Pt settled in room. a/o x4. Verbal, ambulatory. States pain to lower back, rate 3-4/10 at this time. Denies abdominal pain or nausea at this time. IVF started as ordered. IV to RAC flushed w/o compliations, dressing CDI. Ordered meds given. Tele monitor placed. CIWA protocol in place, informed pt of protocol and verbalized understanding. On [id number]. Needs met at this time. Call light within reach. Urine collected and sent to lab.
[2020-01-22 23:43] VITALS: BP 127/77; PULSE 96; TEMP 98.1
[2020-01-22 23:49] LABS: COLLECTION METHOD CLEAN CATCH
[2020-01-23] VITALS (14 sets, daily range): BP systolic 113–143; BP diastolic 59–90; PULSE 66–125; TEMP 97.7–98.9
[2020-01-23 00:01] LABS: MUCOUS Present /lpf; PH 6 (5-8); SQUAMOUS EPITHELIAL None Seen /hpf; URINE APPEARANCE Clear; URINE BACTERIA None Seen /hpf; URINE BILIRUBIN Positive (NEGATIVE); URINE BLOOD Negative (NEGATIVE); URINE COLOR Amber; URINE GLUCOSE Negative (NEGATIVE); URINE KETONE Negative (NEGATIVE); URINE LEUKOCYTE ESTERASE Negative (NEGATIVE); URINE NITRATE Negative (NEGATIVE); URINE PROTEIN(semi-quant) 1+ (NEGATIVE); URINE UROBILINOGEN >=4.0 mg/dL (NEGATIVE)
[2020-01-23 00:24] LABS: TRICYCLIC ANTIDEPRESS URINE NEGATIVE
--- NOTE | 2020-01-23 04:07 | NUR ---
Pt requesting pain meds for back pain, rate 10/21. PRN morphine administered. Scheduled meds administered. NO other needs at this time. Call light within reach.
[2020-01-23 07:22] LABS: HEMOGLOBIN 13.8 g/dl (13.5-18.0); MEAN CELL VOLUME 94 fl (80.0-100.0); MEAN CORPUSCULAR HEMOGLOBIN 34 pg (27.0-31.0); MEAN CORPUSCULAR HGB CONC 36 g/dl (33.0-37.0); MEAN PLATELET VOLUME 10.8 fl (7.4-10.4); PLATELET COUNT 99 K/mm3 (130-400); RED BLOOD COUNT 4.06 M/mm3 (4.20-5.60); REDCELL DISTRIBUTION WIDTH-CV 15.3 % (11.5-14.5)
[2020-01-23 07:30] LABS: ALBUMIN 3.1 gm/dL (3.5-5.0); BILIRUBIN,TOTAL 7.9 mg/dL (0.0-1.0); CALCIUM 7.9 mg/dL (8.4-10.2); CREATININE, serum 0.62 (0.66-1.25); POTASSIUM 3.2 mmol/L (3.4-5.0); TOTAL PROTEIN 6.9 gm/dL (6.4-8.2)
[2020-01-23 07:37] LABS: BAND 6 % (0-10); EOSINOPHIL 2 % (0-4); LYMPHOCYTE 18 % (20.0-51.0); NEUTROPHILS 63 % (42.0-75.2); PLATELET ESTIMATE DECREASED (NORMAL)
[2020-01-23 07:38] LABS: ANISOCYTOSIS 1+; TARGET CELLS 2+
--- NOTE | 2020-01-23 08:42 | NUR ---
0820 CIWA PROTOCOL SCORE 6. PT TACHY, NAUSEOUS, NO SLEEP LAST NIGHT, HR >140. 1MG ATIVAN GIVEN. PT NAUSEOUS AFTER REPORTED LIQUID BM WHEN HE TOOK HIMSELF TO BATHROOM. MOSTLY DRY HEAVES WITH SOME SALIVA. ZOFRAN ORDER OBTAINED FROM DR OLSON. PT NO EXHIBITING MODERATE TREMOR AND REPORTS LOWER BACK PAIN 9/10 TEARING PAIN. REQUESTING MORPHINE.
--- NOTE | 2020-01-23 08:55 | NUR ---
REFUSED BREAKFAST DUE TO NAUSEA. ON POTASSIUM PROTOCOL. IV POTASSIUM ORDERED DUE TO INCREASED NAUSEA THIS AM
--- NOTE | 2020-01-23 09:47 | NUR ---
PT ROUNDED ON. TREMORS NOW FELT ONLY. REMAINS NAUSEOUS BUT LITTLE TO NO EMESIS. VS CHARTED. PT REPORTS MILD ANXIETY. REMAINS TACHY. REPORTS MILD PALPITATIONS. PAIN CURRENTLY 8/10 TO LOWER BACK. RED BRUISE TO LEFT UPPER ARM PT REPORTS FROM FALLING ONTO PLASTIC GATE LAST WEEK.
--- NOTE | 2020-01-23 13:42 | NUR ---
ZOFRAN GIVEN 15 MINS BEFORE PT ATTEMPTED LUNCH. HE WAS ABLE TO TOLERATE WATER BUT VOMITTED ALL THE SOUP HE DRANK. MOM CURRENTLY AT BEDSIDE. PAIN TO LOWER BACK 8/10 AND REQUESTED MORPHINE. SEE JUN. TREMORS CURRENTLY FELT ONLY. VS CHARTED.
--- NOTE | 2020-01-23 14:20 | NUR ---
SW met with patient to complete intake. Patient's mother was present and assisted with answering questions with patient's approval. Patient states that he lives in [place] with his mother Danitza [phone]. Patient provides that he does not utilize any DME, and that he is independent with with ADL's. Patient's mother provides that he does not have a PCP and only has specialiest Dr's. Patient provides that he obtains medications from [facility]. Patient provides that he does not have a DPOA-HC and does not wish to appoint anyone at this time. Patient mother provides that patient provides that he plans to go back to her home upon DC and patient stated that he would not need any further assistance upon DC. SW will continue to follow.
--- NOTE | 2020-01-23 16:27 | NUR ---
PT GOT UP WITH A BOUT OF LIQUID BROWN DIARRHEA ACCOMPANIED WITH AN ANXIETY EPISODE EVIDENCED BY SHAKING, TEARS AND VERBALIZATION OF "FEELING SCARED". STATES BM TRIGGERED BACK PAIN AND THAT WAS THE MAJOR ISSUE. PAIN RATED 8/10. PRN MORPHINE GIVEN. PT ABLE TO BE RE-ASSURED AND CALMED IN CONVERSATION.
--- NOTE | 2020-01-23 19:30 | NUR ---
Report received from Krissy HERNANDEZ. Pt sitting up in bed. Denies pain or nausea at this time. No other needs expressed. Call light in reach. Will continue to monitor.
--- NOTE | 2020-01-23 19:37 | NUR ---
EOS note: PT AOX4. complaints include chronic back pain 4-11/21. diarrhea with liquid stools x2, nausea with emesis x2 this shift, CIWA score 2 to 6 with tremors, tachycardia, elevated BP, feelings of anxiety and insomnia contributing factors. IVF infusing as ordered. bedside shift report performed. tolerated half of lunch and most of dinner. good water intake with over 2500 mls this shif. urine dark petrona at bedginning and currently light petrona. denies any urinary concerns.
--- NOTE | 2020-01-23 21:05 | NUR ---
Assessment complete. Pt sitting up in bed vomiting into basin upon entering room. Emesis pink and clear. Pt reports recently eating a red jello. Following vomiting episode, pt reports relief from nausea. Mild tremors noted. Heart rate and rhythm regular. A&Ox4. Reports severe pain to lower back relieved by PRN morphine. 560 ml urine output in urinal, dark yellow and clear. Denies other needs at this time. Call light in reach.
[2020-01-24] VITALS (12 sets, daily range): BP systolic 109–132; BP diastolic 61–76; PULSE 56–93; TEMP 97.7–98.6
--- NOTE | 2020-01-24 05:48 | NUR ---
Pt resting in bed all night, occasionally falls asleep for short periods. Mild to no tremors. Heart rate remains in normal range between 60-80, afebrile, blood pressures stable. One episode of vomiting resolved without medication. Pt currently reports feelings of mild nausea but declines Zofran. Occasional complaints of moderate to severe lower back pain relieved by PRN morphine, administered twice this shift.
[2020-01-24 07:20] LABS: INR 2.5 (0.8-3.0); PROTHROMBIN TIME 28.3 SECONDS (9.7-12.8)
[2020-01-24 08:13] LABS: HEMATOCRIT 41.8 % (42.0-52.0); HEMOGLOBIN 15.2 g/dl (13.5-18.0); MEAN CELL VOLUME 94 fl (80.0-100.0); MEAN CORPUSCULAR HEMOGLOBIN 34 pg (27.0-31.0); MEAN CORPUSCULAR HGB CONC 36 g/dl (33.0-37.0); MEAN PLATELET VOLUME 10.9 fl (7.4-10.4); PLATELET COUNT 91 K/mm3 (130-400); RED BLOOD COUNT 4.44 M/mm3 (4.20-5.60)
[2020-01-24 08:19] LABS: ALBUMIN 3.4 gm/dL (3.5-5.0); BILIRUBIN,TOTAL 8.7 mg/dL (0.0-1.0); CALCIUM 8.7 mg/dL (8.4-10.2); CREATININE, serum 0.62 (0.66-1.25); MAGNESIUM 1.6 mg/dL (1.6-2.3); TOTAL PROTEIN 7.8 gm/dL (6.4-8.2)
[2020-01-24 08:42] LABS: BAND 13 % (0-10); LYMPHOCYTE 13 % (20.0-51.0); NEUTROPHILS 65 % (42.0-75.2); PLATELET ESTIMATE DECREASED (NORMAL); TARGET CELLS 1+
--- NOTE | 2020-01-24 09:16 | NUR ---
Patient alert and oriented, complain of pain at 8/10 on his back. RN gave zofran for nausea this am. 92% on RA, applied 0.5L O2- 95%. patient resting in bed. LR 125mL/HR.
--- NOTE | 2020-01-24 19:02 | NUR ---
Report received from Tyesha HERNANDEZ. Pt sitting up in bed, mom at bedside. Mother reports concern at pt not receiving Latuda. Pt and mother were informed of why Latuda is currently being held. Reports moderate pain and nausea but declines any medications at this time. Call light in reach.
--- NOTE | 2020-01-24 21:00 | NUR ---
Assessment complete. Pt sitting up in bed. Reports increasing pain to bilateral upper and lower extremities described as stabbing relieved by PRN morphine. Also reports mild nausea but denies any vomiting episodes. Mild tremors felt upon examination. Denies shortness of air. Currently on 0.5 L O2. A&Ox4, lungs clear to auscultation, heart rate and rhythm regular. Denies other needs at this time. Will continue to monitor.
[2020-01-25] VITALS (11 sets, daily range): BP systolic 107–136; BP diastolic 55–81; PULSE 53–93; TEMP 97.6–98.7
--- NOTE | 2020-01-25 06:19 | NUR ---
Pt reports little sleep over night. Occasional reports of pain to bilateral upper and lower extremities relieved by IV morphine. Reports minimal nausea this shift and no vomiting. Alcohol detox score max of 4, ativan administered once. Resting in bed at this time. Denies needs.
[2020-01-25 07:04] LABS: BASO % 0.3 % (0.0-2.0); EOS # 0.1 (0.0-0.7); EOS % 0.6 % (0-4.0); GRAN # 9.7 (1.4-6.5); GRAN % 74.4 % (42.2-75.2); HEMATOCRIT 38.7 % (42.0-52.0); HEMOGLOBIN 13.9 g/dl (13.5-18.0); LYMPH % 15.3 % (20.0-51.0); MEAN CELL VOLUME 94 fl (80.0-100.0); MEAN CORPUSCULAR HEMOGLOBIN 34 pg (27.0-31.0); MEAN CORPUSCULAR HGB CONC 36 g/dl (33.0-37.0); MEAN PLATELET VOLUME 10.5 fl (7.4-10.4); MONO # 1.2 (0.1-0.6); MONO % 8.8 % (1.7-9.3); PLATELET COUNT 92 K/mm3 (130-400); RED BLOOD COUNT 4.14 M/mm3 (4.20-5.60); REDCELL DISTRIBUTION WIDTH-CV 16.1 % (11.5-14.5)
[2020-01-25 07:15] LABS: BILIRUBIN,TOTAL 8.3 mg/dL (0.0-1.0); CALCIUM 8.4 mg/dL (8.4-10.2); CREATININE, serum 0.65 (0.66-1.25); POTASSIUM 3.8 mmol/L (3.4-5.0); TOTAL PROTEIN 6.9 gm/dL (6.4-8.2)
[2020-01-25 08:58] LABS: INR 2.4 (0.8-3.0); PROTHROMBIN TIME 26.8 SECONDS (9.7-12.8)
--- NOTE | 2020-01-25 19:48 | NUR ---
Patient alert and oriented, complain of back pain. Pain managed with Morphine. detox score 2-5. RN gave 0.5mg of ativan for a score of 5, once. Dr Woodall started patient on Lamictal. home medication-Latuda was discontinued. LR at 75mL/HR. PT is 26.8, patient was started on Phytonadione IV. Patient tolerate medications well. Morning blood glucose was less than 70, Patient was started on hypoglycemic protocol as needed for blood sugar less than 60. accu check every 6 hours. blood sugar has been greater than 60 through this shift. Diet advanced from Clear liquid to low fat, Patient tolerate fine. Zofran restarted prn, today Qtc 435. WBC 13.1 - recieving Rocephin. 93% ON room air.
--- NOTE | 2020-01-25 23:06 | NUR ---
Received report from DAVID Arambula. Mother at bedside during shift change. PT c/o back pain and bilateral extremity pain, pulses palpable, able to move extremities with no issue, cap refill <3sec. Also c/o nausea. PRN zofran and morphine administered as requested. PT states relief. Scheduled meds administered. IVF infusing to RAC, intact. Tele monitor in place. SCD in place to BLE. Needs met at this time. Call light within reach.
[2020-01-26] VITALS (13 sets, daily range): BP systolic 110–128; BP diastolic 54–80; PULSE 54–76; TEMP 98–99.1
--- NOTE | 2020-01-26 04:13 | NUR ---
Pt requesting pain med for back pain, rate 8/10. PRN morphine administered as requested. Urinal emptied and charted. NO other needs at this time. Call light within reach.
[2020-01-26 06:49] LABS: BASO % 0.3 % (0.0-2.0); EOS # 0.1 (0.0-0.7); EOS % 1.2 % (0-4.0); GRAN # 8.6 (1.4-6.5); HEMATOCRIT 38.5 % (42.0-52.0); HEMOGLOBIN 13.8 g/dl (13.5-18.0); LYMPH # 1.9 (1.2-3.4); MEAN CELL VOLUME 95 fl (80.0-100.0); MEAN CORPUSCULAR HEMOGLOBIN 34 pg (27.0-31.0); MEAN CORPUSCULAR HGB CONC 36 g/dl (33.0-37.0); MEAN PLATELET VOLUME 10.9 fl (7.4-10.4); MONO # 1.1 (0.1-0.6); MONO % 8.9 % (1.7-9.3); PLATELET COUNT 85 K/mm3 (130-400); RED BLOOD COUNT 4.05 M/mm3 (4.20-5.60); REDCELL DISTRIBUTION WIDTH-CV 16.3 % (11.5-14.5)
[2020-01-26 07:01] LABS: INR 2.2 (0.8-3.0); PROTHROMBIN TIME 25.3 SECONDS (9.7-12.8)
[2020-01-26 07:04] LABS: BILIRUBIN,TOTAL 8.6 mg/dL (0.0-1.0); CALCIUM 8.5 mg/dL (8.4-10.2); CREATININE, serum 0.73 (0.66-1.25); MAGNESIUM 1.6 mg/dL (1.6-2.3); POTASSIUM 3.8 mmol/L (3.4-5.0); TOTAL PROTEIN 6.8 gm/dL (6.4-8.2)
--- NOTE | 2020-01-26 07:11 | NUR ---
Report given to DAVID Colin.
--- NOTE | 2020-01-26 07:16 | NUR ---
appears to be dozing but awakens easily, bedside shift report received from Ashanti Ramirez
--- NOTE | 2020-01-26 08:10 | NUR ---
up to bathroom with assistance and then back to bed, full assessment completed, see interventions for further info, c/o pain and medicated with morphine 2mg slow IV, had breakfast and tolerated well, denies other needs
--- NOTE | 2020-01-26 09:15 | NUR ---
in bed and appears to be sleeping, lights off, eyes closed, resp quiet and easy
--- NOTE | 2020-01-26 10:17 | NUR ---
Aqua-Mephyton IV started, rate on pump verified with Jazmin pharmacist, will stay with patient while medication infusing
--- NOTE | 2020-01-26 10:27 | NUR ---
aqua-mephytoninfusion complete, denies any concerns
--- NOTE | 2020-01-26 11:06 | NUR ---
Dr Mancera and care team in to see patient, IV fluids stopped at this time
--- NOTE | 2020-01-26 14:21 | NUR ---
resting in bed watching TV, denies needs
--- NOTE | 2020-01-26 15:57 | NUR ---
states pain is a 9/10 but without moaning or grimacing, medicated with roxicodone 5mg
--- NOTE | 2020-01-26 17:01 | NUR ---
remains in bed and watching TV, states some relief from pain pill
--- NOTE | 2020-01-26 18:24 | NUR ---
eating supper and visiting with his mom
--- NOTE | 2020-01-26 18:52 | NUR ---
bedside shift report given to DAVID Cast
--- NOTE | 2020-01-26 21:50 | NUR ---
Resting in bed. Assessment complete. Lungs clear. Heart sounds normal. Bowels active x4. Pulses present throughout. No edema noted. INT right AC flushed without complications. Reports 4/10 pain. Pain medication due at 2350. Denies other needs at this time. Call light in reach.
--- NOTE | 2020-01-26 22:40 | NUR ---
Telemetry called stating patient in junctional rhythm, requested EKG for confirmation. Dr. Lo on floor. Dr. Lo reviewed telemetry strip on monitor. No concern at this time, continue to monitor, no EKG
[2020-01-27] VITALS (10 sets, daily range): BP systolic 116–134; BP diastolic 60–78; PULSE 56–91; TEMP 98.1–99
--- NOTE | 2020-01-27 00:10 | NUR ---
Patient given PRN oxycodone for 7/10 back pain. Denies other needs at this time. Call light in reach.
--- NOTE | 2020-01-27 02:03 | NUR ---
Resting in bed asleep. Call light in reach.
--- NOTE | 2020-01-27 05:21 | NUR ---
Patient required x1 dose of oxycodone throughout night for pain control. Otherwise uneventful night. Resting in bed this AM. Call light in reach.
--- NOTE | 2020-01-27 06:45 | NUR ---
Report given to DAVID Carrasco
[2020-01-27 07:13] LABS: BASO % 0.3 % (0.0-2.0); EOS # 0.1 (0.0-0.7); EOS % 1.2 % (0-4.0); GRAN # 8.2 (1.4-6.5); HEMATOCRIT 38.5 % (42.0-52.0); HEMOGLOBIN 13.8 g/dl (13.5-18.0); LYMPH # 1.7 (1.2-3.4); MEAN CELL VOLUME 93 fl (80.0-100.0); MEAN CORPUSCULAR HEMOGLOBIN 33 pg (27.0-31.0); MEAN CORPUSCULAR HGB CONC 36 g/dl (33.0-37.0); MEAN PLATELET VOLUME 10.6 fl (7.4-10.4); MONO # 1.2 (0.1-0.6); MONO % 10.1 % (1.7-9.3); PLATELET COUNT 90 K/mm3 (130-400); RED BLOOD COUNT 4.15 M/mm3 (4.20-5.60); REDCELL DISTRIBUTION WIDTH-CV 16.7 % (11.5-14.5)
[2020-01-27 07:32] LABS: ALBUMIN 2.8 gm/dL (3.5-5.0); BILIRUBIN,TOTAL 8.5 mg/dL (0.0-1.0); CALCIUM 8.3 mg/dL (8.4-10.2); CREATININE, serum 0.82 (0.66-1.25); POTASSIUM 3.9 mmol/L (3.4-5.0); TOTAL PROTEIN 6.6 gm/dL (6.4-8.2)
[2020-01-27 10:47] LABS: PROTHROMBIN TIME 22.7 SECONDS (9.7-12.8)
--- NOTE | 2020-01-27 13:52 | NUR ---
Primary nurse was assisted with [id number] patient care by [employer] student Tameka Lennon and [employer] instructor Annemarie Marsh RN-.
--- NOTE | 2020-01-27 18:59 | NUR ---
Report received from Danilo HERNANDEZ. Pt sitting up in bed with mother at bedside. Requests more information on plan of care and whether he can go home tonight. Danilo updating pt and mom.
--- NOTE | 2020-01-27 20:27 | NUR ---
Assessment complete. Pt sitting up in bed, mom at bedside. Pt continues to report desire to go home tonight and increasing anxiety from being away from home and off anti-anxiety medications. Silvia GUERRERO talked with pt and mother. Pt agreeable to staying overnight with use of PRN Ativan for anxiety. Also reports severe abdominal pain. PO oxycodone and 0.5 mg IV Ativan administered. Heart rate and rhythm regular, lungs clear to auscultation, A&Ox4. Denies thoughts of self harm or harming others. Following administration of Ativan, pt reports feeling calmer. Encouraged to call if feelings of anxiety begin to increase. Will continue to monitor.
[2020-01-28 01:42] VITALS: BP 117/68; PULSE 72; TEMP 98.2
[2020-01-28 03:51] VITALS: BP 124/63; PULSE 64; TEMP 98.3
--- NOTE | 2020-01-28 05:55 | NUR ---
Pt reports getting some sleep throughout night but waking frequently. Complaints of pain requiring PO roxicodone x2 this shift. Reports adequate relief from this. Pt reported to this RN that anxiety is much improved since last night, pt does not feel that he needs any more PRN ativan at this time. Lying quietly in bed each time this RN entered room. Blood sugar of 62 this AM, brought a cup of juice, will recheck blood glucose in 15 minutes.
[2020-01-28 05:56] VITALS: BP 122/62; PULSE 66; TEMP 98.2
[2020-01-28 07:18] LABS: HEMATOCRIT 37.9 % (42.0-52.0); HEMOGLOBIN 13.5 g/dl (13.5-18.0); MEAN CELL VOLUME 93 fl (80.0-100.0); MEAN CORPUSCULAR HEMOGLOBIN 33 pg (27.0-31.0); MEAN CORPUSCULAR HGB CONC 36 g/dl (33.0-37.0); MEAN PLATELET VOLUME 11.6 fl (7.4-10.4); PLATELET COUNT 85 K/mm3 (130-400); RED BLOOD COUNT 4.08 M/mm3 (4.20-5.60); REDCELL DISTRIBUTION WIDTH-CV 17.1 % (11.5-14.5)
[2020-01-28 07:22] LABS: INR 1.9 (0.8-3.0); PROTHROMBIN TIME 21.8 SECONDS (9.7-12.8)
[2020-01-28 07:32] LABS: ALBUMIN 2.7 gm/dL (3.5-5.0); BILIRUBIN,TOTAL 7.9 mg/dL (0.0-1.0); CALCIUM 8.3 mg/dL (8.4-10.2); CREATININE, serum 0.8 (0.66-1.25); POTASSIUM 3.4 mmol/L (3.4-5.0); TOTAL PROTEIN 6.4 gm/dL (6.4-8.2)
[2020-01-28 08:03] LABS: ANISOCYTOSIS 1+; BAND 3 % (0-10); LYMPHOCYTE 18 % (20.0-51.0); NEUTROPHILS 73 % (42.0-75.2); PLATELET ESTIMATE DECREASED (NORMAL)
[2020-01-28 08:04] LABS: TARGET CELLS 1+
[2020-01-28 08:14] VITALS: BP 112/66; PULSE 65; TEMP 98.1
--- NOTE | 2020-01-28 09:55 | NUR ---
Pt awake and resting in bed upon entry, shift assessment complete, left Pt call light in reach, bed in lowest position.
[2020-01-28 10:13] VITALS: BP 129/66; PULSE 95; TEMP 98.2
[2020-01-28] MEDS ORDERED: LAMICTAL 25MG T25 MG PO (11:52)
[2020-01-28] MEDS ORDERED: PREDNISOLO15 MG/5 M3 PO (11:53)
[2020-01-28] MEDS ORDERED: THIAMINE 1100 MG/TAB PO (11:53)
[2020-01-28] MEDS ORDERED: ATARAX 25MG25 MG/TAB PO (11:54)
[2020-01-28] MEDS ORDERED: PROTONIX 40MG T40 MG PO (12:00)
[2020-01-28 12:13] VITALS: BP 120/71; PULSE 81; TEMP 98
--- NOTE | 2020-01-28 12:54 | NUR ---
The patient is to discharge home today, 01/27. He is independent. SW met with the patient to review the discharge plan and to discuss drug and alcohol treatment. The patient has telehealth appointments once a week at [facility] and will continue there after discharge. There are no additonal needs.
--- NOTE | 2020-01-28 13:35 | NUR ---
Primary nurse was assisted with [id number] patient care by [employer] student Analia Winters and [employer] ADN instructor Annemarie Marsh RN-MIGNON.
--- NOTE | 2020-01-28 14:27 | NUR ---
Pt discharged to home, discussed discharge packet with Pt, answered questions. Escorted Pt to entrance, Pt left with family via private auto.
[2020-01-30] MEDS ORDERED: PHENERGAN25 MG RC (14:04)
== END 2020-01-28 14:20 | disposition home or self-care (01) | DRG 433 ==
LOC: COL.ER 16:21 → MEDICAL 19:16
PROVIDERS: Family Medicine; Internal Medicine; Physician Assistant
DX: K70.11 Alcoholic hepatitis with ascites (principal); F10.180 Alcohol abuse with alcohol-induced anxiety disorder; E16.2 Hypoglycemia, unspecified; D69.6 Thrombocytopenia, unspecified; R94.31 Abnormal electrocardiogram [ECG] [EKG]; E87.6 Hypokalemia; K21.00 Gastro-esophageal reflux disease with esophagitis, without bleeding; K29.70 Gastritis, unspecified, without bleeding; D72.829 Elevated white blood cell count, unspecified; F10.10 Alcohol abuse, uncomplicated; F31.9 Bipolar disorder, unspecified; E66.9 Obesity, unspecified; F17.290 Nicotine dependence, other tobacco product, uncomplicated; Z68.30 Body mass index [BMI] 30.0-30.9, adult
CPT/HCPCS: 99223-AI; 99231-AI; 99232-AI; 99233-AI; 99239; J0696; J1170; J1790; J2060; J2270; J2405; J3430; J3480; J7120; J7510; Q9967

== ENCOUNTER 2020-01-31 09:39 | Inpatient (IN) | payer BC, MEDICAID ==
[~2020-01-31] VITALS: Ht 175.3 cm; Wt 99.4 kg
[~2020-01-31 09:39] MED LIST changes: +ATARAX 25MG25 MG/TAB PO; +LAMICTAL 25MG T25 MG PO; +PHENERGAN25 MG RC; +PROTONIX 40MG T40 MG PO; +THIAMINE 1100 MG/TAB PO
[2020-01-31 10:46] LABS: HEMATOCRIT 37.8 % (42.0-52.0); HEMOGLOBIN 13.6 g/dl (13.5-18.0); MEAN CELL VOLUME 92 fl (80.0-100.0); MEAN CORPUSCULAR HEMOGLOBIN 33 pg (27.0-31.0); MEAN CORPUSCULAR HGB CONC 36 g/dl (33.0-37.0); MEAN PLATELET VOLUME 11.3 fl (7.4-10.4); PLATELET COUNT 91 K/mm3 (130-400); RED BLOOD COUNT 4.11 M/mm3 (4.20-5.60); REDCELL DISTRIBUTION WIDTH-CV 18.9 % (11.5-14.5)
[2020-01-31 10:59] LABS: ALBUMIN 3.4 gm/dL (3.5-5.0); C-REACTIVE PROTEIN 2.9 mg/dL (0.0-0.9); CALCIUM 8.2 mg/dL (8.4-10.2); CREATININE, serum 0.65 (0.66-1.25); POTASSIUM 3.4 mmol/L (3.4-5.0); TOTAL PROTEIN 7.6 gm/dL (6.4-8.2)
[2020-01-31 11:09] LABS: BAND 6 % (0-10); EOSINOPHIL 5 % (0-4); LYMPHOCYTE 13 % (20.0-51.0); NEUTROPHILS 74 % (42.0-75.2)
[2020-01-31 11:11] LABS: PLATELET ESTIMATE DECREASED (NORMAL)
[2020-01-31 13:13] LABS: INR 1.5 (0.8-3.0); PROTHROMBIN TIME 16.9 SECONDS (9.7-12.8)
--- NOTE | 2020-01-31 13:15 | NUR ---
pt arrived to unit @ 1300 via cart and self-transfered into bed. reports pain 9/10 with activity reduced to 8/10 at rest to left inner thigh radiating to leg and toes. 3x3 black center with surrounding 6x6 puffy area with some yellow discolouration. bordering redness to outter thigh and around scrotum also noted. entire left leg and per-area tender. good circulation. increased warmth noted.doc made aware of pt arrival
[2020-01-31 14:41] VITALS: BP 137/84; PULSE 95; TEMP 8.8
[2020-01-31 15:52] VITALS: BP 137/77; PULSE 98; TEMP 98.5
[2020-01-31 19:31] VITALS: BP 138/79; PULSE 92; TEMP 98.7
--- NOTE | 2020-01-31 23:00 | NUR ---
PT accidently dislodged IV to RW during sleep. RW IV dc'd with catheter intact. New IV started to LFA 20G, flushed, tolerated well, dressing CDI, IVF restarted.
[2020-01-31 23:34] VITALS: BP 134/85; PULSE 94; TEMP 98.2
--- NOTE | 2020-02-01 01:50 | NUR ---
Received report from ADVID Rey. Pt's mother at bedside during shift change. Pt c/o pain to left inner thigh, rate 6/10 at rest, rate 9-10/10 with movement. Site to lt thigh open to air, no drainage, black center with redness and swelling. PRN pain meds and scheduled meds administered. IV to RW intact with fluids infusing, dressing CDI. SCD in place to BLE. 1+ with use of Walker to BR, pt moans in pain while ambulating. Pt understands possible I&D in AM and NPO status at midnight. Needs met. Urinal at bedside. Call light within reach.
[2020-02-01 03:52] VITALS: BP 134/76; PULSE 76; TEMP 98.3
--- NOTE | 2020-02-01 05:45 | NUR ---
PRN pain meds administered as requested by pt for lt thigh/leg pain. Pt remained NPO since midnight. Needs met. Call light within reach.
[2020-02-01 07:07] LABS: BASO # 0.1 (0.0-0.2); BASO % 0.8 % (0.0-2.0); EOS # 0.5 (0.0-0.7); EOS % 3.9 % (0-4.0); GRAN % 66.3 % (42.2-75.2); HEMOGLOBIN 12.7 g/dl (13.5-18.0); LYMPH % 16.4 % (20.0-51.0); MEAN CELL VOLUME 95 fl (80.0-100.0); MEAN CORPUSCULAR HEMOGLOBIN 33 pg (27.0-31.0); MEAN CORPUSCULAR HGB CONC 35 g/dl (33.0-37.0); MEAN PLATELET VOLUME 11.6 fl (7.4-10.4); MONO # 1.4 (0.1-0.6); MONO % 11.8 % (1.7-9.3); PLATELET COUNT 82 K/mm3 (130-400); RED BLOOD COUNT 3.82 M/mm3 (4.20-5.60)
--- NOTE | 2020-02-01 07:07 | NUR ---
Report given to DAVID Carrasco.
[2020-02-01 07:09] LABS: HEMATOCRIT 36.1 % (42.0-52.0)
[2020-02-01 07:10] LABS: BILIRUBIN,TOTAL 11.8 mg/dL (0.0-1.0); CALCIUM 8.1 mg/dL (8.4-10.2); CREATININE, serum 0.58 (0.66-1.25); POTASSIUM 3.4 mmol/L (3.4-5.0); TOTAL PROTEIN 6.7 gm/dL (6.4-8.2)
[2020-02-01 08:28] VITALS: BP 139/74; PULSE 88; TEMP 98.1
--- NOTE | 2020-02-01 10:46 | NUR ---
Assessment completed, alert/oriented, vital signs stable, reports pain 6-9 / 10 to left thigh that radiates to his scortum, pain meds given as needed, wound from pig bit has a black eschar center with surrounding redness and swelling/ no drainage and wound is TRANSIT SPECIALIST, Sx is following and we have kept patient NPO for possible IND, WBC 12 today which is down from 15, blood and wound cx pending, patient score 0 on CIWA at this time, denies other needs at this time
[2020-02-01 12:06] VITALS: BP 138/77; PULSE 103; TEMP 97.9
--- NOTE | 2020-02-01 15:26 | NUR ---
Assignment Agent met with patient to discuss discharge planning. Patient is a readmit and was at [facility] from 01/22/20-01/28/20 for alcohol hepatitis. Patient was discharged home. Patient was admitted this stay for a trauma bite to his thigh. Patient states his pet pig, Valentine bit him and does this from time to time, but not frequently. Patient lives with his mother, Danitza (ph#[phone]) and states his father, Barrie (ph#[phone]) also lives in [place]. Patient reports he was set up with a primary care physician, Dr. Motta at his last discharge but is unsure when his appointment is. Patient follows with Dr. Hayes, Psychiatrist but again is unsure if he has an upcoming appointment. Patient states his mom coordinates all his appointments. SW addressed patient's alcohol use and patient states he has cut back to about 2 beers a day. Patient reports when he was drinking heavily, he would drink about a 30 pack of beer a day plus shots of Rum. Patient states he sees Ras Nunn from [facility] and isn't sure when his next telehealth appointment is with her. Patient isn't interested in AA at this time, but has thought about it. Patient states he has anxiety and it is very difficult for him to go new places. Patient does not use any DME and is normally independent with ADLS. Patient does not have Advance Directives and is not interested in designating DPOA-HC at this time. Patient is not and has no children. Patient's next of kin would be his parents. Patient plans on returning home at discharge. IMANI contacted patient's mother, Danitza who advised patient lives with her and she provides him with support. Danitza advised she manages patient's medications and sets them out for patient as prescribed. Danitza reports patient's appointment with Dr. Motta was scheduled for 02/02 but may need to be rescheduled depending on discharge date. Danitza reports patient does not currently have a follow up scheduled with Dr. Hayes but will need one set up at discharge. Danitza confirmed that patient sees Ras Nunn but that there is no current appointment scheduled. Danitza is in agreement with patient returning home with her at discharge. IMANI will continue to follow.
[2020-02-01 16:50] VITALS: BP 128/69; PULSE 77; TEMP 98.4
--- NOTE | 2020-02-01 19:30 | NUR ---
Pt's mom at bedside. States pain rate 5/10 to left thigh, states this is tolerable for him. Did receive prn dilaudid by day RN. INT to LFA intact, flushed, dressing CDI. Urinal at bedside. States no needs at this time. Call light within reach.
[2020-02-01 20:00] VITALS: BP 139/87; PULSE 88; TEMP 97.7
--- NOTE | 2020-02-01 21:40 | NUR ---
Pt having increased pain to lt inner thigh, rate 9-10. PRN dilaudid and roxicodone administered per JUN. Extremely tender to touch, redness, swelling with black center observed, no drainage. Urinal drained and charted. Pt requesting shower tmrw. Informed pt to coordiate with day RN to receive pain meds prior to shower. Will endorse to day RN. Call light within reach.
[2020-02-01 23:08] VITALS: BP 132/80; PULSE 71; TEMP 98.7
--- NOTE | 2020-02-02 02:18 | NUR ---
Pt used call light stating, "my face is bleeing." UPon entry, found pt with hands up to rt cheek with blood draining. Pt states that he accidently scratched off a mole on his rt cheek. Pressure applied for approximately 15 mins. Drainage stopped. Pt cleaned up, gown changed. States no pain to rt cheek. Pt c/o nausea and started dry heaving, basin provided. PRN zofran administered. No emesis. States pain to lt thigh at rate 7/10, requesting prn pain meds later, will notify RN. Call light within reach.
[2020-02-02 04:00] VITALS: BP 128/68; PULSE 82; TEMP 98.2
--- NOTE | 2020-02-02 06:07 | NUR ---
PRN pain meds and nausea med administered as requested by pt. Pt states he was able to get some sleep. Requesting shower today, will endorse to day RN. Needs attended too. Call light within reach.
--- NOTE | 2020-02-02 07:04 | NUR ---
Report given to DAVID Carrasco.
[2020-02-02 07:43] VITALS: BP 120/82; PULSE 75; TEMP 98.4
--- NOTE | 2020-02-02 07:48 | NUR ---
Assessment completed, alert/oriented, vital signs stable/ afebrile, continues to report severe pain 10/10 this morning to his wound on left inner thigh, receiving IV Dilaudid fairly regularly and report this only brings pain down to about 5/10, wound looks mostly unchanged/ surrounding tissue Erythema has expanded from orginal marking, patient repots pain involves entire upper leg and into his scrotum, scrotum is red but is not swollen, CIWA scores 0-2 / no signs of ETOH withdrawl, he is eating and drinking without difficulty, heart RRR/distal pulses are palapble, lungs CTA/ no resp.difficulty noted, awaiting eval and further recs from Sx this morning , patient denies other needs at this time, will continue to monitor
[2020-02-02 08:30] LABS: BASO % 0.3 % (0.0-2.0); EOS # 0.2 (0.0-0.7); EOS % 1.5 % (0-4.0); GRAN # 7.9 (1.4-6.5); GRAN % 71.5 % (42.2-75.2); HEMOGLOBIN 12.3 g/dl (13.5-18.0); LYMPH # 1.6 (1.2-3.4); LYMPH % 14.2 % (20.0-51.0); MEAN CELL VOLUME 97 fl (80.0-100.0); MEAN CORPUSCULAR HEMOGLOBIN 34 pg (27.0-31.0); MEAN CORPUSCULAR HGB CONC 35 g/dl (33.0-37.0); MEAN PLATELET VOLUME 11.9 fl (7.4-10.4); MONO # 1.3 (0.1-0.6); PLATELET COUNT 89 K/mm3 (130-400); RED BLOOD COUNT 3.66 M/mm3 (4.20-5.60); REDCELL DISTRIBUTION WIDTH-CV 19.9 % (11.5-14.5)
[2020-02-02 08:33] LABS: BILIRUBIN,TOTAL 8.5 mg/dL (0.0-1.0); CREATININE, serum 0.58 (0.66-1.25); HEMATOCRIT 35.6 % (42.0-52.0); POTASSIUM 3.5 mmol/L (3.4-5.0); TOTAL PROTEIN 6.7 gm/dL (6.4-8.2)
[2020-02-02 11:22] VITALS: BP 116/76; PULSE 77; TEMP 98.6
[2020-02-02 16:33] VITALS: BP 116/68; PULSE 62; TEMP 98.3
[2020-02-02 18:44] VITALS: BP 144/79; PULSE 90; TEMP 98.3
--- NOTE | 2020-02-02 20:30 | NUR ---
Patient assessed at this time. Alert and oriented x 4, and able to make needs known. Reports level 10 pain to left thigh. Updset that he was not jeannette pain medication earlier. Appologized to patient and explained how PRN medications work, that he needs to ask for them. Voiced understanding. Given PRN Dilaudid for pain as requested. Patient also requested something for anxiety, and given PRN Atarax. Peripheral INT to left forearm. Zosyn running at this time. Site without redness, warmth, swelling, and pain. Denies SOB and dyspnea. LS CTA. Respirations even and unlabored. HRR. Telemetry in place: sinus. Capillary refill less than 3 seconds. Non-tenting skin turgor. BSAx4. Abdomen soft and non-tender. Using bedside urinal-urine clear and yellow. Edema to left inner thigh at bite/wound. Redness continues, with black escar in center. No drainge. Patient complaining of numbess/tingling intermittently to left foot. No discoloration, able to wiggle toes. Patient stated he wanted something to help him sleep, will call NETWORK OPERATIONS PROJECT MANAGER. Voices no further questions, needs, or concerns at this time. Resting in bed with call light within reach.
--- NOTE | 2020-02-02 21:30 | NUR ---
Called DIRECTOR CONSUMER AFFAIRS, and new order received for Benadryl 50 mg QHS PRN for insomnia. Given at this time along with PRN Roxicodone. Voices no further questions, needs, or concerns at this time. Resting in bed with call light within reach.
[2020-02-03] VITALS (7 sets, daily range): BP systolic 120–140; BP diastolic 64–81; PULSE 64–97; TEMP 97.8–99
--- NOTE | 2020-02-03 00:53 | NUR ---
Patient complaining of level 9 pain to left leg. Given PRN Dilaudid for pain at this time.
--- NOTE | 2020-02-03 02:39 | NUR ---
Patient complaining of level 7-8 pain at this time. Given PRN Roxicodone as requested for pain.
--- NOTE | 2020-02-03 04:54 | NUR ---
Patient complained of level 9 pain. Given PRN Dilaudid as requested for pain at this time.
--- NOTE | 2020-02-03 05:03 | NUR ---
Patient has been receiving PRN Roxicodone and Dilaudid per orders, see MAR for times. Continues to rate pain from a 7-10. Received Benadryl last night for insomnia, and patient reports that he was able to get some rest last night. Voices no questions, needs, or concerns at this time. Used bedside urinal throughout the night. Resting in bed with call light within reach.
[2020-02-03 07:15] LABS: HEMATOCRIT 37.8 % (42.0-52.0); HEMOGLOBIN 13.2 g/dl (13.5-18.0); MEAN CELL VOLUME 96 fl (80.0-100.0); MEAN CORPUSCULAR HEMOGLOBIN 34 pg (27.0-31.0); MEAN CORPUSCULAR HGB CONC 35 g/dl (33.0-37.0); MEAN PLATELET VOLUME 11.6 fl (7.4-10.4); PLATELET COUNT 113 K/mm3 (130-400); RED BLOOD COUNT 3.94 M/mm3 (4.20-5.60); REDCELL DISTRIBUTION WIDTH-CV 20.7 % (11.5-14.5)
[2020-02-03 07:29] LABS: ALBUMIN 3.4 gm/dL (3.5-5.0); BILIRUBIN,TOTAL 7.4 mg/dL (0.0-1.0); CALCIUM 8.4 mg/dL (8.4-10.2); CREATININE, serum 0.71 (0.66-1.25); POTASSIUM 3.6 mmol/L (3.4-5.0); TOTAL PROTEIN 7.5 gm/dL (6.4-8.2)
[2020-02-03 08:10] LABS: BAND 14 % (0-10); BASOPHIL 1 % (0-2); EOSINOPHIL 3 % (0-4); LYMPHOCYTE 15 % (20.0-51.0); NEUTROPHILS 58 % (42.0-75.2)
[2020-02-03 08:11] LABS: TARGET CELLS 3+
[2020-02-03 08:14] LABS: PLATELET ESTIMATE DECREASED (NORMAL)
--- NOTE | 2020-02-03 08:52 | NUR ---
Pt scratched open a mole on his face, area had profuse bleeding, held pressure for +10 minutes without stopping, contacted charge nurse and we applied a pressure dressing with 2X2s and foam tape, area bled through shortly after continued to apply pressure, had after 30 minutes bleeding not stopped, had student nurse apply pressure and contacted provider, provider assessed Pt, Pt still had active bleeding after 30+ minutes, retrieved surgicell from the ER, provider applied to bleeding area, bleeding resolved, applied folded 4X4 over site taped with foam tape.
--- NOTE | 2020-02-03 10:55 | NUR ---
First visit from the janitor head. No needs right now.
[2020-02-03 13:14] LABS: HEMATOCRIT 34.4 % (42.0-52.0)
--- NOTE | 2020-02-03 13:37 | NUR ---
Primary nurse was assisted with [phone] patient care by [employer] AD[employer] student Staci Kapoor and [employer] instructor Annemarie Marsh RN-.
--- NOTE | 2020-02-03 18:13 | NUR ---
Pt resting in the room today, no further bleeding noted from mole on face, has had C/O pain / discomfort during the shift, medications were given for relief, no other issues noted, VS have remained stable.
--- NOTE | 2020-02-03 19:00 | NUR ---
Patient called and stated that he was bleeding again. Upon entering room, patient holding towel to site under right eye. Stated the dressing had been bothering his eye so he took it off. Pressure held to area for about 5 minutes, and placed surgicel dressing to area. No further bleeding at this time. Ecouraged to leave dressing alone, and voiced understanding.
--- NOTE | 2020-02-03 20:11 | NUR ---
Patient assessed at this time. Alert and oriented x 4, and able to make needs known. Reports level 10 pain. Given PRN Roxicodone at this time. Also given PRN Atarax for anxiety and Benadryl for insomnia as requested by patient. Peripheral INT to left forearm. Denies SOB and dyspnea. LS CTA. Respirations even and unlabored. HRR. Capillary refill less than 3 seconds. Non-tenting skin turgor. BSAx4. Abdomen soft and non-tender. Edema to left thigh at bite site. Eschar in center with redness/warmth surrounding area, which is within the martinez. Denies having any questions, needs, or concerns at this time. Resting in bed with call light within reach.
--- NOTE | 2020-02-03 21:50 | NUR ---
Patient complaining of level 8 pain to left leg. Given PRN Dilaudid as requested for pain.
[2020-02-04 03:04] VITALS: BP 134/78; PULSE 107; TEMP 98.4
--- NOTE | 2020-02-04 03:42 | NUR ---
Patient called and stated that his mole was bleeding again. Pressure held to area for approximately 20 minutes, then new surgicel dressing applied. Voices no further questions, needs, or concerns at this time. Resting in bed with call light within reach.
--- NOTE | 2020-02-04 06:11 | NUR ---
Patient has received PRN Dilaudid and Roxicodone as needed this shift-see MAR for times. Reports pain between 7-10 to left inner thigh, radiating to foot/back. Dressing to mole under right eye in place. Voices no further questions, needs, or concerns at this time. Resting in bed with call light within reach.
[2020-02-04 06:29] LABS: HEMOGLOBIN 12.4 g/dl (13.5-18.0); MEAN CELL VOLUME 95 fl (80.0-100.0); MEAN CORPUSCULAR HEMOGLOBIN 33 pg (27.0-31.0); MEAN CORPUSCULAR HGB CONC 34 g/dl (33.0-37.0); PLATELET COUNT 122 K/mm3 (130-400); REDCELL DISTRIBUTION WIDTH-CV 21.1 % (11.5-14.5)
[2020-02-04 06:31] LABS: HEMATOCRIT 36.2 % (42.0-52.0)
[2020-02-04 06:39] LABS: CALCIUM 8.6 mg/dL (8.4-10.2); CREATININE, serum 0.63 (0.66-1.25); POTASSIUM 3.6 mmol/L (3.4-5.0)
[2020-02-04 07:37] VITALS: BP 133/77; PULSE 85; TEMP 98.9
[2020-02-04 07:41] LABS: BAND 9 % (0-10); LYMPHOCYTE 19 % (20.0-51.0); NEUTROPHILS 59 % (42.0-75.2); PLATELET ESTIMATE DECREASED (NORMAL); TARGET CELLS 1+
[2020-02-04 08:44] LABS: ALBUMIN 3.2 gm/dL (3.5-5.0)
[2020-02-04 09:01] LABS: BILIRUBIN,DIRECT 2.8 mg/dL (0.0-0.4); BILIRUBIN,TOTAL 5.7 mg/dL (0.0-1.0)
[2020-02-04 09:16] LABS: INR 1.5 (0.8-3.0); PROTHROMBIN TIME 16.5 SECONDS (9.7-12.8)
--- NOTE | 2020-02-04 09:37 | NUR ---
Pt awake and alert this morning, has C/O pain and medications given for relief, shift assessments complete.
[2020-02-04] MEDS ORDERED: AMOXICILLIN 8751 TAB PO (10:05)
[2020-02-04] MEDS ORDERED: ROXICODONE 55 MG/TAB PO (10:06)
[2020-02-04 11:53] VITALS: BP 133/87; PULSE 74; TEMP 98.7
[2020-02-04 12:02] VITALS: BP 142/85; PULSE 80; TEMP 99.3
--- NOTE | 2020-02-04 12:50 | NUR ---
Pt discharged to home, discussed discharge packet with Pt, answered questions, escorted Pt to entrance, Pt left with family via private transportation.
--- NOTE | 2020-02-04 13:30 | NUR ---
Primary nurse was assisted with [phone] [facility] [employer] student Staci Kapoor and [employer] instructor Annemarie Marsh RN-.
== END 2020-02-04 12:50 | disposition home or self-care (01) | DRG 872 ==
LOC: COL.ER 09:39 → MEDICAL 11:28
PROVIDERS: Nurse Practitioner; Physician Assistant; ADMIT Hospitalist
DX: A41.9 Sepsis, unspecified organism (principal); L03.116 Cellulitis of left lower limb; F31.9 Bipolar disorder, unspecified; K21.00 Gastro-esophageal reflux disease with esophagitis, without bleeding; E66.01 Morbid (severe) obesity due to excess calories; F10.10 Alcohol abuse, uncomplicated; K70.11 Alcoholic hepatitis with ascites; F17.210 Nicotine dependence, cigarettes, uncomplicated; D69.6 Thrombocytopenia, unspecified; F19.180 Other psychoactive substance abuse with psychoactive substance-induced anxiety disorder; E16.2 Hypoglycemia, unspecified; K29.70 Gastritis, unspecified, without bleeding; S01.80XA Unspecified open wound of other part of head, initial encounter; W55.41XA Bitten by pig, initial encounter; Z68.32 Body mass index [BMI] 32.0-32.9, adult
CPT/HCPCS: 99222-AI; 99231-AI; 99232-AI; 99233-AI; 99239; J1170; J2405; J2543; J7030; J7510; Q9967

== ENCOUNTER 2020-02-28 20:46 | Observation (INO) | payer BC, MEDICAID ==
[~2020-02-28] VITALS: Ht 175.3 cm; Wt 95.2 kg
[~2020-02-28 20:46] MED LIST changes: +ROXICODONE 55 MG/TAB PO
[2020-02-28 22:54] LABS: INR 1.5 (0.8-3.0); PROTHROMBIN TIME 16.4 SECONDS (9.7-12.8)
[2020-02-28 22:55] LABS: HEMOGLOBIN 12.7 g/dl (13.5-18.0); MEAN CELL VOLUME 95 fl (80.0-100.0); MEAN CORPUSCULAR HEMOGLOBIN 34 pg (27.0-31.0); MEAN CORPUSCULAR HGB CONC 35 g/dl (33.0-37.0); MEAN PLATELET VOLUME 10.6 fl (7.4-10.4); PLATELET COUNT 121 K/mm3 (130-400); RED BLOOD COUNT 3.79 M/mm3 (4.20-5.60); REDCELL DISTRIBUTION WIDTH-CV 19.8 % (11.5-14.5)
[2020-02-28 22:56] LABS: PARTIAL THROMBOPLASTIN TIME 35.5 SECONDS (26.0-37.0)
[2020-02-28 22:58] LABS: HEMATOCRIT 36.1 % (42.0-52.0)
[2020-02-28 23:04] LABS: ALANINE AMINOTRANSFERASE 126 U/L (4-49); ALBUMIN 3.4 gm/dL (3.5-5.0); ALKALINE PHOSPHATASE 213 U/L (50-136); ANION GAP 7 mmol/L (7-16); AST,SGOT 213 U/L (15-37); BILIRUBIN,TOTAL 5.1 mg/dL (0.0-1.0); BLOOD UREA NITROGEN 10 mg/dL (9-20); C-REACTIVE PROTEIN 1.3 mg/dL (0.0-0.9); CALCIUM 8.8 mg/dL (8.4-10.2); CARBON DIOXIDE 27 mmol/L (22-30); CHLORIDE 101 mmol/L (98-107); CREATININE, serum 0.71 (0.66-1.25); GLUCOSE 91 mg/dL (74-106); LIPASE 167 U/L (23-300); MAGNESIUM 1.6 mg/dL (1.6-2.3); PHOSPHOROUS 2.9 mg/dL (2.5-4.5); POTASSIUM 3.2 mmol/L (3.4-5.0); SODIUM 135 mmol/L (137-145); TOTAL PROTEIN 6.6 gm/dL (6.4-8.2)
[2020-02-28 23:07] LABS: ALCOHOL(ethanol),MEDICAL < 10 mg/dL
[2020-02-28 23:14] LABS: COLLECTION METHOD CLEAN CATCH
[2020-02-28 23:35] LABS: MUCOUS Present /lpf; PH 5 (5-8); SQUAMOUS EPITHELIAL 0-2 /hpf; URINE APPEARANCE Hazy; URINE BACTERIA None Seen /hpf; URINE BILIRUBIN Positive (NEGATIVE); URINE BLOOD Negative (NEGATIVE); URINE CALCIUM OXALATE CRYSTAL Present /hpf; URINE COLOR Amber; URINE GLUCOSE Negative (NEGATIVE); URINE KETONE Negative (NEGATIVE); URINE LEUKOCYTE ESTERASE Negative (NEGATIVE); URINE NITRATE Negative (NEGATIVE); URINE PROTEIN(semi-quant) 2+ (NEGATIVE); URINE RBC 0-2 /hpf; URINE UROBILINOGEN >=4.0 mg/dL (NEGATIVE)
[2020-02-28 23:39] LABS: TRICYCLIC ANTIDEPRESS URINE NEGATIVE
[2020-02-28 23:57] LABS: BAND 7 % (0-10); EOSINOPHIL 2 % (0-4); LYMPHOCYTE 7 % (20.0-51.0); NEUTROPHILS 75 % (42.0-75.2); TARGET CELLS 1+
[2020-02-28 23:58] LABS: ANISOCYTOSIS 1+
[2020-02-28 23:59] LABS: PLATELET ESTIMATE DECREASED (NORMAL)
[2020-02-29] VITALS (10 sets, daily range): BP systolic 110–138; BP diastolic 52–82; PULSE 74–96; TEMP 97.7–99.5
--- NOTE | 2020-02-29 06:15 | NUR ---
Arrived to medical floor. Given call light. Denies needs at this time.
[2020-02-29] MEDS ORDERED: KLONOPIN 1MG1 MG PO (07:06)
--- NOTE | 2020-02-29 07:10 | NUR ---
Report given to DAVID Falcon
--- NOTE | 2020-02-29 07:30 | NUR ---
PT REPORT RCVD FROM DAVID VELOZ. PT ARRIVED TO THE FLOOR ABOUT 45 MINUTES AGO. PT IS CURRENTLY STATING HE IS NAUSEOUS, AND HAVING SOME PAIN. VSS, AND NOT HAVING ANY SOB OR VOMITING, BUT IS HAVING SOME DIARRHEA. ENDORSED THIS TO THE PROVIDER WHO WAS IN THE ROOM DURING THIS ASSESSMENT. NO FURTHER CONCERNS AT THIS TIME. CALL LIGHT WITHIN REACH.
[2020-02-29] MEDS ORDERED: PROZAC 20MG20 MG PO (09:45)
--- NOTE | 2020-02-29 11:56 | NUR ---
PT IS AFEBRILE, STILL HAVING SOME NAUSEA, HAS NOT VOMITED. PAIN IS RATING AT A 4/10. NO NEED FOR DILAUDID AT THIS TIME. PT IS BEING UPGRADED TO A CLEAR LIQUID DIET. CONSULT HAS BEEN NOTIFIED TO DR. CASTLE FOR THE CHOLEY. NO FURTHER CONCERNS AT THIS TIME. CALL LIGHT WITHIN REACH. INFORMED PT TO CALL AFTER BM SO WE CAN COLLLECT THE STOOL SAMPLE.
--- NOTE | 2020-02-29 13:13 | NUR ---
PT HAS BEEN SEEN BY BOTH HOSPITALIST TODAY. HE STATES THAT HE'S SUPPOSED TO BE HAVING A LOW FAT DIET, HOWEVER IS STILL ON A CLEAR LIQUID DIET PER THE ORDERS. CONTACTED PROVIDERS THERE IS CONFLICTING ORDERS.
--- NOTE | 2020-02-29 16:08 | NUR ---
Photo Retoucher contacted patient on his room phone as patient is a PUI for COVID at this time. Patient has had a couple recent hospitalizations: 01/22/20-01/28/20 for alcohol hepatitis and 01/31/20-02/04/20 for a trauma bite to the thigh. During last hospital stay, patient reported he was bitten by his pet pot bellied pig. Patient lives with his mother, Danitza (ph#[phone]) in [place]. Patient was to be set up with Dr. Motta for primary care but patient states he has not seen him yet. Patient sees Dr. Hayes, Psychiatrist and reports he had a phone call with him a few days ago. Patient also sees Maira Wilde, Therapist at [facility] and patient states they had a zoom call less than a week ago. Patient does not have Advance Directives and his next of kin are his parents, Danitza and Barrie (ph#[phone]). Patient does not use DME and reports independence with ADLS. Patient reports his mother picks up his medications for him from [facility]. SW addressed patient's alcohol use and patient states he has been talking with his therapist, Maira about doing virtual AA. Patient is not interested in any additional services at this time. Patient plans to return home upon discharge. IMANI contacted patient's mother, Danitza to review discharge plan. Danitza confirmed the above information and appointments. Danitza states patient did not follow up with PCP, Dr. Motta even though appointment was made. Danitza states it takes a lot emotionally for patient to go to appointments. Danitza did advise that patient has been following with Dr. Hayes and Maira Wilde. Danitza states patient attended his follow up appointment with GI after his last discharge. Danitza is in agreement with patient returning home upon discharge. Danitza states patient is already anxious to get home.
--- NOTE | 2020-02-29 18:36 | NUR ---
PT HAS STATED THAT HE IS FEELING MUCH BETTER.
--- NOTE | 2020-02-29 19:08 | NUR ---
Report given to DAVID Cast
--- NOTE | 2020-02-29 20:12 | NUR ---
Resting in bed. Assessment complete. Lungs clear. Heart sounds normal. Bowels active x4. Pulses present throughout. No edema noted. IV infusing without complications. Reports 7/10 back and leg pain at this time. Provided with PRN oxycodone. Deines other needs at this time. Call light in reach.
[2020-03-01] VITALS (11 sets, daily range): BP systolic 114–144; BP diastolic 51–82; PULSE 68–98; TEMP 98.6–100.7
--- NOTE | 2020-03-01 00:27 | NUR ---
Reports 5/10 back pain. Oxycodone not due. Patient temp also slowly increasing. Patient given tylenol. Will monitor.
--- NOTE | 2020-03-01 02:07 | NUR ---
Patient rated pain 7/10. Given PRN oxycodone. Denies other needs. Call light in reach.
--- NOTE | 2020-03-01 02:57 | NUR ---
Reports nausea. Given PRN zofran. Temperature increasing despite tylenol adminstration. Decreased room temp and removed covers. Will continue to monitor.
--- NOTE | 2020-03-01 06:09 | NUR ---
Patient required oxycodone for pain control and tylenol for temperature. Patient had x2 episodes of nausea and was given zofran. Patient reports back and leg pains this AM. Oxycodone not due at this time. Patient aware. Otherwise uneventful night. Resting in bed this AM. Call light in reach.
--- NOTE | 2020-03-01 06:52 | NUR ---
Report given to DAVID Kasper
[2020-03-01 07:04] LABS: BASO # 0.1 (0.0-0.2); BASO % 0.5 % (0.0-2.0); EOS # 0.4 (0.0-0.7); EOS % 3.9 % (0-4.0); GRAN # 6.6 (1.4-6.5); GRAN % 61.9 % (42.2-75.2); HEMOGLOBIN 12.3 g/dl (13.5-18.0); LYMPH # 2.1 (1.2-3.4); LYMPH % 19.9 % (20.0-51.0); MEAN CELL VOLUME 98 fl (80.0-100.0); MEAN CORPUSCULAR HEMOGLOBIN 34 pg (27.0-31.0); MEAN CORPUSCULAR HGB CONC 35 g/dl (33.0-37.0); MEAN PLATELET VOLUME 10.8 fl (7.4-10.4); MONO # 1.4 (0.1-0.6); MONO % 13.3 % (1.7-9.3); PLATELET COUNT 102 K/mm3 (130-400); RED BLOOD COUNT 3.61 M/mm3 (4.20-5.60); REDCELL DISTRIBUTION WIDTH-CV 20.1 % (11.5-14.5)
[2020-03-01 07:11] LABS: HEMATOCRIT 35.5 % (42.0-52.0)
[2020-03-01 07:20] LABS: BILIRUBIN,TOTAL 5.9 mg/dL (0.0-1.0); CALCIUM 7.9 mg/dL (8.4-10.2); CREATININE, serum 0.65 (0.66-1.25); POTASSIUM 3.7 mmol/L (3.4-5.0); TOTAL PROTEIN 5.8 gm/dL (6.4-8.2)
--- NOTE | 2020-03-01 09:08 | NUR ---
Assessment complete. Patient states he feels pretty good this morning. Does report pain in his back and legs rated at a 7 but no complaints of nausea or vomiting at this time. PRN pain medication was provided for his pain. IV sites are CD&I, no issues. IVF continue to run. Patient remains independent in the room gettting up intermittently. No other needs were expressed at this time. Call light is in reach. Will continue to monitor.
--- NOTE | 2020-03-01 18:04 | NUR ---
Patient has had a very uneventful day. He has napped almost all day. He has gotten his pain medication every 6hrs as ordered PRN, pain is in his legs and back, this is his only complaint. I did inform him that the machine in [place] is down and that is why we do not have his test results back yet, he expressed understanding. IVF continue to infuse. No other needs. Call light is in reach. Will continue to monitor.
--- NOTE | 2020-03-01 21:00 | NUR ---
Resting in bed. Assessment complete. Lungs clear. Heart sounds normal. Bowels active x4. Pulses present throughout. No edema noted. INT to right forearm without complications. IV to left hand infusing without complications. Denies pain at this time. Denies other needs. Call light in reach.
--- NOTE | 2020-03-01 21:50 | NUR ---
Patient reported back pain. Provided oxycodone. Patient tearful and reporting anixety attack. Given klonopin also and provided emotional support. Patient VS check per detox protocol. Temp elevated. Given tylenol. Will monitor.
[2020-03-02 00:13] VITALS: BP 112/60; PULSE 87; TEMP 99
--- NOTE | 2020-03-02 00:16 | NUR ---
Resting in bed. Reports pains are tolerable. Denies other needs. Call light in reach .
[2020-03-02 02:18] VITALS: BP 108/62; PULSE 75; TEMP 98.6
--- NOTE | 2020-03-02 02:21 | NUR ---
Resting in bed. Denies needs. call light in reach.
[2020-03-02 04:51] VITALS: BP 106/58; PULSE 65; TEMP 98.6
--- NOTE | 2020-03-02 05:59 | NUR ---
Patient required oxycodone for pain control throughout night. Had x1 episode of anixety and was given klonopin. Otherwise uneventful night. Given oxycodone for pain this AM. Other needs denied. Call light in reach.
--- NOTE | 2020-03-02 07:01 | NUR ---
Report given to DAVID Kasper
[2020-03-02 08:02] VITALS: BP 130/76; PULSE 56; TEMP 97.9
--- NOTE | 2020-03-02 08:20 | NUR ---
Assessment complete. Patient laying in bed on entry. States that he feels okay but admits he had a couple of anxiety attacks last night. Reports feeling better now. Pain is currently at a 6-6.5, will administer PRN pain medication when it is elligible to be given, patient is okay with this. IVF continue to infuse. No other needs were expressed at this time. Will continue to monitor. Call light is in reach.
[2020-03-02] MEDS ORDERED: ATARAX 25MG25 MG/TAB PO (11:44)
[2020-03-02] MEDS ORDERED: ZOFRAN 4MG T4 MG/TAB PO (11:45)
[2020-03-02] MEDS ORDERED: ROXICODONE 55 MG/TAB PO ×2 (11:47)
[2020-03-02] MEDS ORDERED: OMNICEF 300MG300 MG PO (11:48)
[2020-03-02 11:57] VITALS: BP 130/85; PULSE 86; TEMP 98.1
--- NOTE | 2020-03-02 18:20 | NUR ---
Patient left the floor at this time. Discharge instructions were discussed. No further questions or concerns.
== END 2020-03-02 18:22 | disposition home or self-care (01) ==
LOC: COL.ER 20:46 → MEDICAL 02-29 02:57
PROVIDERS: Emergency Medicine; Student in an Organized Health Care Education/Training Program; ADMIT Hospitalist
DX: K70.10 Alcoholic hepatitis without ascites (principal); K76.0 Fatty (change of) liver, not elsewhere classified; K74.60 Unspecified cirrhosis of liver; K76.6 Portal hypertension; Z20.828 Contact with and (suspected) exposure to other viral communicable diseases; D72.829 Elevated white blood cell count, unspecified; E87.6 Hypokalemia; E87.1 Hypo-osmolality and hyponatremia; D64.9 Anemia, unspecified; K21.9 Gastro-esophageal reflux disease without esophagitis; F32.9 Major depressive disorder, single episode, unspecified
CPT/HCPCS: OP; 99223-AI; G0378; J0696; J1170; J1885; J1956; J2060; J2405; J2550; J3411; J3475; J7030; Q9967

== ENCOUNTER 2020-03-23 19:59 | Emergency (ER) | payer BC, MEDICAID ==
[~2020-03-23] VITALS: Ht 401.3 cm; Wt 100.0 kg
[~2020-03-23 19:59] MED LIST changes: +KLONOPIN 1MG1 MG PO; +OMNICEF 300MG300 MG PO; +PHENERGAN 25 TA25 MG PO; +PROZAC 20MG20 MG PO
[2020-03-23 20:08] VITALS: TEMP 97.9
[2020-03-23 21:42] LABS: HEMATOCRIT 41.2 % (42.0-52.0); HEMOGLOBIN 14.3 g/dl (13.5-18.0); MEAN CELL VOLUME 98 fl (80.0-100.0); MEAN CORPUSCULAR HEMOGLOBIN 34 pg (27.0-31.0); MEAN CORPUSCULAR HGB CONC 35 g/dl (33.0-37.0); MEAN PLATELET VOLUME 9.9 fl (7.4-10.4); PLATELET COUNT 155 K/mm3 (130-400); RED BLOOD COUNT 4.19 M/mm3 (4.20-5.60); REDCELL DISTRIBUTION WIDTH-CV 16.1 % (11.5-14.5)
[2020-03-23 21:52] LABS: ALBUMIN 3.9 gm/dL (3.5-5.0); BILIRUBIN,TOTAL 7.5 mg/dL (0.0-1.0); CREATININE, serum 0.72 (0.66-1.25); POTASSIUM 3.6 mmol/L (3.4-5.0); TOTAL PROTEIN 7.8 gm/dL (6.4-8.2)
[2020-03-23 21:58] LABS: ANISOCYTOSIS 3+; BAND 3 % (0-10); EOSINOPHIL 1 % (0-4); LYMPHOCYTE 11 % (20.0-51.0); MYELOCYTE 1 % (0-0); NEUTROPHILS 68 % (42.0-75.2); PLATELET ESTIMATE NORMAL (NORMAL); TARGET CELLS 2+
[2020-03-23 22:51] LABS: COLLECTION METHOD CLEAN CATCH
[2020-03-23 22:56] LABS: PH 7 (5-8); SQUAMOUS EPITHELIAL None Seen /hpf; URINE APPEARANCE Clear; URINE BACTERIA None Seen /hpf; URINE BILIRUBIN Negative (NEGATIVE); URINE BLOOD 1+ (NEGATIVE); URINE COLOR Yellow; URINE GLUCOSE Negative (NEGATIVE); URINE KETONE Negative (NEGATIVE); URINE LEUKOCYTE ESTERASE Negative (NEGATIVE); URINE NITRATE Negative (NEGATIVE); URINE PROTEIN(semi-quant) 1+ (NEGATIVE); URINE RBC None Seen /hpf; URINE UROBILINOGEN >=4.0 mg/dL (NEGATIVE)
[2020-03-23 23:11] LABS: TRICYCLIC ANTIDEPRESS URINE NEGATIVE
[2020-03-23] MEDS ORDERED: ZOFRAN ODT4 MG PO (23:15)
[2020-03-23 23:16] VITALS: BP 119/55; PULSE 88
== END 2020-03-23 23:24 | disposition home or self-care (01) ==
LOC: COL.ER 19:59
PROVIDERS: Emergency Medicine
DX: R11.2 Nausea with vomiting, unspecified (principal); F10.129 Alcohol abuse with intoxication, unspecified; Z87.442 Personal history of urinary calculi
CPT/HCPCS: J2405; J7030

== ENCOUNTER 2020-04-19 19:45 | Inpatient (IN) | payer BC, MEDICAID ==
[~2020-04-19] VITALS: Ht 175.3 cm; Wt 92.6 kg
[~2020-04-19 19:45] MED LIST changes: +ZOFRAN ODT4 MG PO
[2020-04-19 23:05] LABS: HEMOGLOBIN 11.9 g/dl (13.5-18.0); MEAN CELL VOLUME 95 fl (80.0-100.0); MEAN CORPUSCULAR HEMOGLOBIN 35 pg (27.0-31.0); MEAN CORPUSCULAR HGB CONC 36 g/dl (33.0-37.0); MEAN PLATELET VOLUME 11.5 fl (7.4-10.4); PLATELET COUNT 85 K/mm3 (130-400); RED BLOOD COUNT 3.44 M/mm3 (4.20-5.60); REDCELL DISTRIBUTION WIDTH-CV 18.7 % (11.5-14.5)
[2020-04-19 23:11] LABS: INR 2.5 (0.8-3.0); PROTHROMBIN TIME 28.3 SECONDS (9.7-12.8)
[2020-04-19 23:14] LABS: PARTIAL THROMBOPLASTIN TIME 41.4 SECONDS (26.0-37.0)
[2020-04-19 23:15] LABS: ALBUMIN 2.9 gm/dL (3.5-5.0); BILIRUBIN,TOTAL 11.2 mg/dL (0.0-1.0); CALCIUM 8.8 mg/dL (8.4-10.2); CREATININE, serum 0.83 (0.66-1.25); POTASSIUM 3.5 mmol/L (3.4-5.0); TOTAL PROTEIN 6.6 gm/dL (6.4-8.2)
[2020-04-19 23:24] LABS: HEMATOCRIT 32.7 % (42.0-52.0)
[2020-04-19 23:38] LABS: ANISOCYTOSIS 1+; BAND 13 % (0-10); LYMPHOCYTE 4 % (20.0-51.0); NEUTROPHILS 79 % (42.0-75.2); PLATELET ESTIMATE NORMAL (NORMAL)
[2020-04-19 23:39] LABS: TARGET CELLS 2+
[2020-04-20] VITALS (275 sets, daily range): BP systolic 101–129; BP diastolic 58–80; PULSE 96–114; TEMP 98–98.6; O2SAT 48–99
--- NOTE | 2020-04-20 00:45 | NUR ---
Phone report received from Mala HERNANDEZ in ED.
--- NOTE | 2020-04-20 01:00 | NUR ---
Pt arrived via wheelchair to ICU04. Pt was able to transfer into bed a short distance although reported feeling weak. A&O. Jaundice skin throughout noted with scattered, various sizes, various stages bruising on skin. Eyes are noted to be jaundice as well. Assessment & VS completed and documented. Pt denies feeling hungry although reports thirst. Water provided.
[2020-04-20 01:14] LABS: MAGNESIUM 1.7 mg/dL (1.6-2.3)
[2020-04-20 01:30] LABS: C-REACTIVE PROTEIN 14.2 mg/dL (0.0-0.9)
[2020-04-20 03:05] LABS: COLLECTION METHOD CLEAN CATCH
[2020-04-20 03:13] LABS: MUCOUS Present /lpf; PH 5 (5-8); SQUAMOUS EPITHELIAL None Seen /hpf; URINE APPEARANCE Hazy; URINE BACTERIA None Seen /hpf; URINE BILIRUBIN Positive (NEGATIVE); URINE BLOOD Negative (NEGATIVE); URINE COLOR Amber; URINE GLUCOSE Negative (NEGATIVE); URINE KETONE Negative (NEGATIVE); URINE LEUKOCYTE ESTERASE Negative (NEGATIVE); URINE NITRATE Negative (NEGATIVE); URINE PROTEIN(semi-quant) 1+ (NEGATIVE); URINE RBC None Seen /hpf; URINE WBC None Seen /hpf
--- NOTE | 2020-04-20 07:15 | NUR ---
RECEIVED REPORT FROM DAVID GOINS. PT SLEEPING. PT ON 2L VIA AK. VSS. CALL LIGHT WITHIN REACH.
--- NOTE | 2020-04-20 07:27 | NUR ---
Uneventful shift following admission of this pt.
--- NOTE | 2020-04-20 10:18 | NUR ---
Slope Runner met with patient to discuss discharge planning. Patient lives in [place] with his mother, Danitza (ph#[phone]). Per notes from last stay, patient was made an appointment with Dr. Motta to establish primary care, however patient states he never went to this appointment. Patient reports he sees Dr. Hayes, Psychiatrist and Maira Wilde, Therapist at [facility] and had telehealth appointments with both of them within the last week. Patient obtains medications from [facility] and states his mother picks up his medications for him. Patient does not use any DME at home and reports independence with ADLS. Patient does not have Advance Directives. Patient is not and has no children. Patient's legal next of kin are his parents, Danitza and Barrie. SW addressed patient's alcohol use. Patient states he has not had a drink in two days and hopes he is done this time. Patient states he was drinking about 100 ounces of malt liquor a day prior to hospitalization. SW inquired if patient has ever considered attending AA and patient states he is still thinking about it. Patient plans to return home upon discharge. SW contacted patient's mother, Danitza to review discharge plan. Danitza advised patient did not attend appointment with Dr. Motta and wasn't sure if patient would be agreeable to see a primary care physician at all. Danitza is in agreement with patient returning home upon discharge. IMANI will continue to follow.
--- NOTE | 2020-04-20 11:40 | NUR ---
SPOKE TO DR KO ABOUT PT'S REQUEST FOR PAIN MEDICATION.
--- NOTE | 2020-04-20 12:06 | NUR ---
SPOKE TO DR MODI, PHYSICIAN STATES THAT DR IRWIN WILL FOLLOW THE PATIENT SINCE HE SEES HER AN OUTPATIENT.
--- NOTE | 2020-04-20 12:09 | NUR ---
DR GAY AT BEDSIDE FOR ASSESSMENT.
[2020-04-20 12:17] LABS: HEMOGLOBIN 10.7 g/dl (13.5-18.0); MEAN CELL VOLUME 95 fl (80.0-100.0); MEAN CORPUSCULAR HEMOGLOBIN 34 pg (27.0-31.0); MEAN CORPUSCULAR HGB CONC 36 g/dl (33.0-37.0); MEAN PLATELET VOLUME 10.9 fl (7.4-10.4); PLATELET COUNT 79 K/mm3 (130-400); RED BLOOD COUNT 3.13 M/mm3 (4.20-5.60); REDCELL DISTRIBUTION WIDTH-CV 18.6 % (11.5-14.5)
[2020-04-20 12:25] LABS: HEMATOCRIT 29.7 % (42.0-52.0)
[2020-04-20 12:33] LABS: ALBUMIN 2.7 gm/dL (3.5-5.0); BILIRUBIN,TOTAL 11.1 mg/dL (0.0-1.0); CALCIUM 8.5 mg/dL (8.4-10.2); CREATININE, serum 0.82 (0.66-1.25); POTASSIUM 3.6 mmol/L (3.4-5.0); TOTAL PROTEIN 6.2 gm/dL (6.4-8.2)
[2020-04-20 12:53] LABS: BAND 25 % (0-10); LYMPHOCYTE 6 % (20.0-51.0); NEUTROPHILS 67 % (42.0-75.2)
[2020-04-20 12:54] LABS: PLATELET ESTIMATE DECREASED (NORMAL); TARGET CELLS 2+; TEAR DROP CELLS 1+
--- NOTE | 2020-04-20 13:54 | NUR ---
REPORT CALLED TO DAVID DOWNEY ON MEDICAL. PT TO TRANSFER TO [facility] VIA ON 2L VIA FL. ALL PERSONAL BELONGINGS SENT WITH PT.
--- NOTE | 2020-04-20 14:04 | NUR ---
DR IRWIN AT BEDSIDE FOR ASSESSMENT AND UPDATED ON PT'S TRANSFER AND POC SO FAR.
[2020-04-20] MEDS ORDERED: LATUDA40 MG PO (14:42)
--- NOTE | 2020-04-20 17:19 | NUR ---
1440: Pt transferred to room 359 from ICU by w/ this nurse. Pt A&O, SBA assist to WC and in room. Pt has RAC IV that flushes w/o issue, SCDs on bilateral legs. Pt scoring 3 on CIWA. HR tachy, afebrile, on 2L NC, satting well. Pt has Lt site to abdomen covered w/ bandaid from para. pt slightly jaundice/pale. Pt denies dizziness, V/D. pt states his pain is in his abdomen, all over and has some nausea. Broderick PRN administered per jun. LS CTA, BS active, pulses strong bilaterally. No edema to extremities. Abdomen slight distended. Pt using urinal at bedside. No further needs at this time.
--- NOTE | 2020-04-20 21:45 | NUR ---
Patient assessed at this time. Alert and oriented x 4, and able to make needs known. Reported pain to abdomen and back, and given PRN Roxicodone as requested for pain. Peripheral INT to right AC. Given ABX and PRN Zofran as requested for nausea. Denies SOB and dyspnea. LS CTA. Respirations even and unlabored. HRR. Telemetry in place: sinus. Capillary refill less than 3 seconds. Non-tenting skin turgor. BSAx4. Abdomen soft and non-tender. No edema. SCDs on. Voices no questions, needs, or concerns at this time. Resting in bed with call light within reach. Consent signed for EGD tomorrow and put on chart. Reminded patient that he is to be NPO after midnight, including water. Voiced understanding.
[2020-04-21] VITALS (10 sets, daily range): BP systolic 114–129; BP diastolic 56–74; PULSE 101–106; TEMP 98–98.6
--- NOTE | 2020-04-21 05:58 | NUR ---
Patient scored 2-3 on detox protocol throughout the night. Received PRN Roxicodone once, and PRN Zofran once during the night as requested. Has voiced no further questions, needs, or concerns. Patient has been NPO since midnight for EGD today. Resting in bed with call light within reach.
[2020-04-21 07:32] LABS: INR 2.2 (0.8-3.0); PROTHROMBIN TIME 24.6 SECONDS (9.7-12.8)
[2020-04-21 08:59] LABS: HEMATOCRIT 28.2 % (42.0-52.0); HEMOGLOBIN 10.2 g/dl (13.5-18.0); MEAN CELL VOLUME 95 fl (80.0-100.0); MEAN CORPUSCULAR HEMOGLOBIN 34 pg (27.0-31.0); MEAN CORPUSCULAR HGB CONC 36 g/dl (33.0-37.0); MEAN PLATELET VOLUME 11.5 fl (7.4-10.4); PLATELET COUNT 78 K/mm3 (130-400); RED BLOOD COUNT 2.97 M/mm3 (4.20-5.60); REDCELL DISTRIBUTION WIDTH-CV 18.6 % (11.5-14.5)
[2020-04-21 09:11] LABS: ALBUMIN 2.6 gm/dL (3.5-5.0); BILIRUBIN,TOTAL 10.3 mg/dL (0.0-1.0); CALCIUM 7.9 mg/dL (8.4-10.2); CREATININE, serum 0.78 (0.66-1.25); POTASSIUM 3.5 mmol/L (3.4-5.0); TOTAL PROTEIN 5.6 gm/dL (6.4-8.2)
--- NOTE | 2020-04-21 10:51 | NUR ---
Initial visit; Patient seemed to appreciate Senior Electrical Engineer's visit. Senior Electrical Engineer listened and spoke with Christian about his issues with alcohol and his inability to stop drinking even when his body is at peril. encouraged Christian to continue working with his Counselor and prayed that he would bring God into his life for strength, comfort and help.
--- NOTE | 2020-04-21 11:15 | NUR ---
Pt assessment completed and charted. Pt laying in bed upon entry, on room air, breathing is even and unlabored, satting low 90s. pt denies dizziness, N/V/D, chest pain. pt states he has some abdominal pain, rating it 2/10, denied need for pain med at this time. RAC INT IV flushes w/o issue. LS cta, HRRR, occasionally tachy. Pt has Lt sd para site, covered w/ bandaid, CDI. Abdomen soft, BS active X4. No further concerns expressed at this time. Pt down for EGD at this time.
--- NOTE | 2020-04-21 18:24 | NUR ---
1210: Pt back from EGD, awake, A&O, c/o some abdominal pain. Annette administered per jun. pt denied any nausea. Urinating in urinal, dark petrona. 182: No further concerns expressed throughout day. pt resting in bed, dinner delivered, pt sitting up to eat.
--- NOTE | 2020-04-21 20:10 | NUR ---
Patient assessed at this time. Alert and oriented x 4, and able to make needs known. Denies having pain and discomfort at this time, except for nausea. Given PRN Zofran as requested. Denies having SOB and dyspnea. On oxygen at 0.5 L/min via NC. Peripheral INT to right AC. LS CTA. Respirations even and unlabored. HRR. Telemetry in place. Capillary refill less than 3 seconds. Non-tenting skin turgor. BSAx4. Abdomen soft and non-tender. No edema. SCDs on. Voices no questions, needs, or concerns at this time. Resting in bed with call light within reach.
[2020-04-22] VITALS (9 sets, daily range): BP systolic 116–136; BP diastolic 62–75; PULSE 93–114; TEMP 98–98.7
--- NOTE | 2020-04-22 05:27 | NUR ---
Patient has been resting in bed with call light within reach. Has voiced no questions, needs, or concerns at this time. Resting in bed with call light within reach.
--- NOTE | 2020-04-22 07:49 | NUR ---
Shift assessment complete. Pt lying in bed upon entry. Denies nausea this AM. Reports pain 3/10 to epigastric area and LLQ of abdomen, tender to palpation, declines medication at this time. Urinal emptied of 280 mls clear petrona urine. Right AC INT w/o S/S complication. Heart rhythm regular with rate tachy 95-110. Lungs CTA, A&Ox4. Denies other needs at this time. Continuing to monitor.
[2020-04-22 08:46] LABS: HEMOGLOBIN 10.9 g/dl (13.5-18.0); MEAN CELL VOLUME 94 fl (80.0-100.0); MEAN CORPUSCULAR HEMOGLOBIN 34 pg (27.0-31.0); MEAN CORPUSCULAR HGB CONC 36 g/dl (33.0-37.0); PLATELET COUNT 88 K/mm3 (130-400); RED BLOOD COUNT 3.21 M/mm3 (4.20-5.60); REDCELL DISTRIBUTION WIDTH-CV 18.6 % (11.5-14.5)
[2020-04-22 08:48] LABS: ALBUMIN 2.8 gm/dL (3.5-5.0); BILIRUBIN,TOTAL 11.2 mg/dL (0.0-1.0); CALCIUM 8.2 mg/dL (8.4-10.2); CREATININE, serum 0.77 (0.66-1.25); MAGNESIUM 1.9 mg/dL (1.6-2.3); PHOSPHOROUS 2.8 mg/dL (2.5-4.5); POTASSIUM 3.3 mmol/L (3.4-5.0); TOTAL PROTEIN 6.5 gm/dL (6.4-8.2)
[2020-04-22 08:52] LABS: HEMATOCRIT 30.3 % (42.0-52.0)
--- NOTE | 2020-04-22 18:27 | NUR ---
Pt rested in room today. Reports epigastric pain that was tolerable until about 1730 when pt asked for pain medication. Reports adequate relief from roxicodone. CIWA max of 2 this shift. HR remained in 90s to low 100s most of day with occasional increases to 130s with activity.
--- NOTE | 2020-04-22 19:15 | NUR ---
Patient assessed at this time. Alert and oriented x 4, and able to make needs known. Reported level 6 pain to abdomen. Has already received PRN Roxicodone. Peripheral INT to right AC. Denies SOB and dyspnea. LS CTA. Respirations even and unlabored. HRR. Telemetry in place. Capillary refill less than 3 seconds. Non-tenting skin turgor. BSAx4. No edema. Voices no questions, needs, or concerns at this time. Resting in bed with call light within reach.
--- NOTE | 2020-04-22 21:00 | NUR ---
Patient continued to have level 6 pain to abdomen. Called ANDERSON [facility]. New order for one time dose of Dilaudid. Given at this time. Voices no further questions, needs, or concerns at this time. Potassium replaced per protocol.
[2020-04-23] VITALS (10 sets, daily range): BP systolic 125–136; BP diastolic 71–81; PULSE 95–106; TEMP 98–99.1
--- NOTE | 2020-04-23 05:24 | NUR ---
Patient has not had any complaints of pain or discomfort since receiving one time dose of Dilaudid. Voices no questions, needs, or concerns at this time. Has not been scoring more than a 2 on alcohol detox protocol this shift. Resting in bed with call light within reach.
--- NOTE | 2020-04-23 08:11 | NUR ---
PATIENT ASSESSMENT COMPLETED. HE COMPLAINS OF ABDOMEN PAIN ALL OVER. PRN ROXICODONE GIVEN PER JUN. BREAKFAST HAS ARRIVED AND BEEN PROVIDED. HE STATES HE DOES FEEL A LITTLE NAUSEA BUT NO NEED FOR MEDICATION AT THIS TIME. MAYBE THE FOOD WILL HELP WITH THAT. WILL MONITOR FOR NEEDS HE ALSO FEELS LIKE HIS ABDOMEN IS FEELING TIGHTER AGAIN.
[2020-04-23 08:37] LABS: MEAN CELL VOLUME 96 fl (80.0-100.0); MEAN CORPUSCULAR HEMOGLOBIN 35 pg (27.0-31.0); MEAN CORPUSCULAR HGB CONC 36 g/dl (33.0-37.0); MEAN PLATELET VOLUME 11.3 fl (7.4-10.4); PLATELET COUNT 98 K/mm3 (130-400); RED BLOOD COUNT 3.18 M/mm3 (4.20-5.60); REDCELL DISTRIBUTION WIDTH-CV 18.6 % (11.5-14.5)
[2020-04-23 08:41] LABS: HEMATOCRIT 30.4 % (42.0-52.0)
[2020-04-23 08:47] LABS: ALBUMIN 2.8 gm/dL (3.5-5.0); BILIRUBIN,TOTAL 10.3 mg/dL (0.0-1.0); CALCIUM 8.2 mg/dL (8.4-10.2); CREATININE, serum 0.71 (0.66-1.25); POTASSIUM 3.5 mmol/L (3.4-5.0); TOTAL PROTEIN 6.5 gm/dL (6.4-8.2)
[2020-04-23 10:11] LABS: ANISOCYTOSIS 3+; BAND 3 % (0-10); HYPOCHROMIA 2+; LYMPHOCYTE 21 % (20.0-51.0); NEUTROPHILS 71 % (42.0-75.2); PLATELET ESTIMATE DECREASED (NORMAL); TARGET CELLS 3+
[2020-04-23 10:12] LABS: OVALOCYTES 1+
--- NOTE | 2020-04-23 12:40 | NUR ---
TELE CALLED TO REPORT THAT HIS HEART RATE IS ELEVATED. HE WAS UP IN THE RESTROOM. HE DENIES ANY CHEST PAIN
--- NOTE | 2020-04-23 16:07 | NUR ---
PATIENT COMPLAINS OF ABDOMEN PAIN. PRN ROXICODONE GIVEN.
--- NOTE | 2020-04-23 20:20 | NUR ---
PT AOX4, APPEARS DROWSY, REPORTS HE WOULD LIKE TO BE WOKEN UP TO ASK ABOUT PAIN MEDICATIONS IF HE IS SLEEPING. PT REPORTS PAIN 4/10 IN ABD AND DESCRIBES IT AN ACHING PAIN. PT PLEASANT, HAS WATER AND CALL LIGHT AT BEDSIDE, ROOM IS DARK PT PREFERS, PT MEDICATIONS GIVEN AND REVIEWED, VITALS REVIEWED, ASSESSMENT PERFORMED, NO OTHER NEEDS AT THIS TIME.
--- NOTE | 2020-04-24 00:26 | NUR ---
PT AWOKE UPON ENTERING ROOM, STATED PAIN AT A 5, WANTS PAIN MEDICATION AT THIS TIME.
[2020-04-24 00:44] VITALS: BP 127/76; PULSE 98; TEMP 98.8
[2020-04-24 03:21] VITALS: BP 133/70; PULSE 99; TEMP 98.7
--- NOTE | 2020-04-24 03:31 | NUR ---
PT COMPLAINT OF NAUSEA, NO VOMITING. RATES PAIN 3.5/10.
--- NOTE | 2020-04-24 05:19 | NUR ---
PT RECIEVING PAIN MEDICATION WHEN AVAILABLE, PT REPORTING NAUSEA BUT NO VOMITING. PT DID NOT SLEEP MUCH OF NIGHT, UNSURE WHETHER DUE TO FREQUENT VITAL SIGNS OR INSOMNIA. NO OTHER NEEDS.
--- NOTE | 2020-04-24 06:17 | NUR ---
PT HAVING MULTIPLE LOOSE STOOLS, BUCKELY IN COLOR.
[2020-04-24 06:20] VITALS: BP 126/75; PULSE 101; TEMP 98
[2020-04-24 07:21] LABS: HEMOGLOBIN 10.9 g/dl (13.5-18.0); MEAN CELL VOLUME 95 fl (80.0-100.0); MEAN CORPUSCULAR HEMOGLOBIN 35 pg (27.0-31.0); MEAN CORPUSCULAR HGB CONC 37 g/dl (33.0-37.0); MEAN PLATELET VOLUME 10.8 fl (7.4-10.4); PLATELET COUNT 96 K/mm3 (130-400); RED BLOOD COUNT 3.13 M/mm3 (4.20-5.60); REDCELL DISTRIBUTION WIDTH-CV 19.1 % (11.5-14.5)
[2020-04-24 07:22] LABS: HEMATOCRIT 29.8 % (42.0-52.0)
[2020-04-24 07:26] LABS: ALBUMIN 2.7 gm/dL (3.5-5.0); BILIRUBIN,TOTAL 7.3 mg/dL (0.0-1.0); CREATININE, serum 0.73 (0.66-1.25); POTASSIUM 3.9 mmol/L (3.4-5.0); TOTAL PROTEIN 6.3 gm/dL (6.4-8.2)
[2020-04-24 08:19] LABS: ANISOCYTOSIS 1+; BAND 1 % (0-10); EOSINOPHIL 5 % (0-4); LYMPHOCYTE 16 % (20.0-51.0); NEUTROPHILS 76 % (42.0-75.2); PLATELET ESTIMATE DECREASED (NORMAL); TARGET CELLS 1+
[2020-04-24 08:41] VITALS: BP 138/71; PULSE 100; TEMP 98.1
[2020-04-24 10:02] VITALS: BP 130/69; PULSE 102; TEMP 97.8
[2020-04-24] MEDS ORDERED: ROXICODONE 55 MG/TAB PO (11:03)
--- NOTE | 2020-04-24 11:17 | NUR ---
Pt assessment completed and charted, medications administered per mar. Pt A&O, independent in room, on room air, breathing is even and unlabored. Pt occasionally wants 0.5L NC for comfort, sats well on room air thought. Pt denies N/V/D. Pt rates pain at 4/10 to abdomen, PRN medication administered per mar. Pt has RAC INT IV that flushes well w/o issue. Pt tolerating food and drink ok, poor appetite. No edema noted. No further needs expressed.
--- NOTE | 2020-04-24 13:33 | NUR ---
Residential Real Estate Agent met with the patient to review the discharge plan. The patient plans to return home when able.
--- NOTE | 2020-04-24 14:34 | NUR ---
Pt discharge instructions discussed and reviewed w/ pt who verbalized understanding, all questions answered. RAC INT IV dc'd w/ cath tip intact. All questions answered. No further needs expressed. Pt escorted down to ER entrance where ride was waiting.
== END 2020-04-24 14:36 | disposition home or self-care (01) | DRG 871 ==
LOC: COL.ER 19:45 → MEDICAL 23:54 → ICU 23:54 → MEDICAL 04-20 14:35
PROVIDERS: Emergency Medicine; Internal Medicine Gastroenterology; Nurse Practitioner Primary Care; Physician Assistant; Student in an Organized Health Care Education/Training Program; ADMIT Hospitalist
PROC: 0DB28ZX Excision of Middle Esophagus, Via Natural or Artificial Opening Endoscopic, Diagnostic (ICD-10-PCS; principal; 2020-04-21 11:00)
DX: A41.51 Sepsis due to Escherichia coli [E. coli] (principal); K65.2 Spontaneous bacterial peritonitis; K21.01 Gastro-esophageal reflux disease with esophagitis, with bleeding; K29.21 Alcoholic gastritis with bleeding; R18.8 Other ascites; K76.6 Portal hypertension; B19.20 Unspecified viral hepatitis C without hepatic coma; K70.10 Alcoholic hepatitis without ascites; Z20.822 Contact with and (suspected) exposure to COVID-19; K74.60 Unspecified cirrhosis of liver; F10.20 Alcohol dependence, uncomplicated; E87.6 Hypokalemia; G43.909 Migraine, unspecified, not intractable, without status migrainosus; F41.9 Anxiety disorder, unspecified; F32.9 Major depressive disorder, single episode, unspecified; F17.290 Nicotine dependence, other tobacco product, uncomplicated
CPT/HCPCS: 99222-AI; 99232-AI; 99239; C9113; J0696; J1170; J2060; J2405; J2704; J7030

== ENCOUNTER 2020-05-05 04:31 | Inpatient (IN) | payer BC, MEDICAID ==
[2020-05-05] VITALS (448 sets, daily range): BP systolic 119–187; BP diastolic 74–86; PULSE 113–138; TEMP 97.9–98.9; O2SAT 86–100
[~2020-05-05] VITALS: Ht 175.3 cm; Wt 99.3 kg
[~2020-05-05 04:31] MED LIST changes: +LATUDA40 MG PO
[2020-05-05 05:03] LABS: BASO % 0.7 % (0.0-2.0); EOS # 0.1 (0.0-0.7); EOS % 1.3 % (0-4.0); GRAN # 4.7 (1.4-6.5); GRAN % 79.4 % (42.2-75.2); HEMOGLOBIN 11.5 g/dl (13.5-18.0); LYMPH # 0.8 (1.2-3.4); LYMPH % 12.8 % (20.0-51.0); MEAN CELL VOLUME 100 fl (80.0-100.0); MEAN CORPUSCULAR HEMOGLOBIN 35 pg (27.0-31.0); MEAN CORPUSCULAR HGB CONC 35 g/dl (33.0-37.0); MEAN PLATELET VOLUME 10.4 fl (7.4-10.4); MONO # 0.3 (0.1-0.6); MONO % 5.5 % (1.7-9.3); PLATELET COUNT 174 K/mm3 (130-400); RED BLOOD COUNT 3.28 M/mm3 (4.20-5.60); REDCELL DISTRIBUTION WIDTH-CV 19.6 % (11.5-14.5)
[2020-05-05 05:07] LABS: HEMATOCRIT 32.9 % (42.0-52.0)
[2020-05-05 05:09] LABS: INR 2.3 (0.8-3.0); PROTHROMBIN TIME 25.7 SECONDS (9.7-12.8)
[2020-05-05 05:13] LABS: ALANINE AMINOTRANSFERASE 83 U/L (4-49); ALBUMIN 3.1 gm/dL (3.5-5.0); ALKALINE PHOSPHATASE 323 U/L (50-136); ANION GAP 15 mmol/L (7-16); AST,SGOT 209 U/L (15-37); BILIRUBIN,TOTAL 8.7 mg/dL (0.0-1.0); BLOOD UREA NITROGEN 6 mg/dL (9-20); CALCIUM 8.7 mg/dL (8.4-10.2); CARBON DIOXIDE 17 mmol/L (22-30); CHLORIDE 107 mmol/L (98-107); CREATININE, serum 0.78 (0.66-1.25); GLUCOSE 109 mg/dL (74-106); LIPASE 201 U/L (23-300); POTASSIUM 3.5 mmol/L (3.4-5.0); SODIUM 139 mmol/L (137-145); TOTAL PROTEIN 7.3 gm/dL (6.4-8.2)
[2020-05-05 05:25] LABS: TROPONIN-I < 0.012 ng/mL (0.000-0.035)
[2020-05-05 06:18] LABS: PERITONEAL -POLYMORPHONUCLEAR 94.5 % (0-25); PERITONEAL FLUID RBC 2000 /mm3 (0-0)
--- NOTE | 2020-05-05 07:27 | NUR ---
RECEIVED REPORT FROM DAVID LYLE IN ER. AWAITING ARRIVAL OF PT TO ICU 7.
--- NOTE | 2020-05-05 08:00 | NUR ---
PT ARRIVES TO ICU 7 VIA STRETCHER ON 2L VIA NC. PT TRASNFERS SELF TO ICI BED. PT IS IN A LOT OF PAIN WITH TRANSFER IN ABDOMEN. PLACED ON BEDSIDE CONTINUOUS MONITOR. CALL LIGHT AND URINAL WITHIN REACH. VERBALIZED UNDERSTANDING OF EDUCATION. HR NOTED TO BE 130s. NO DIFFERENCE COMPARED TO ER. INFORMED PT OF POC AND AWAITING ARRIVAL OF PHYSICIAN FOR FURTHER POC. WILL MONITOR CLOSELY SINCE NOTED SOME DIFFICULTIES BREATHING D/T DISTENDED ABDOMEN AND PAIN.
[2020-05-05 08:20] LABS: COLLECTION METHOD CLEAN CATCH
[2020-05-05 08:33] LABS: MUCOUS Present /lpf; PH 5 (5-8); SQUAMOUS EPITHELIAL 0-2 /hpf; URINE APPEARANCE Clear; URINE BACTERIA None Seen /hpf; URINE BILIRUBIN Negative (NEGATIVE); URINE BLOOD Negative (NEGATIVE); URINE COLOR Yellow; URINE GLUCOSE Negative (NEGATIVE); URINE KETONE Negative (NEGATIVE); URINE LEUKOCYTE ESTERASE Negative (NEGATIVE); URINE NITRATE Negative (NEGATIVE); URINE PROTEIN(semi-quant) Negative (NEGATIVE); URINE RBC 0-2 /hpf; URINE UROBILINOGEN Negative (NEGATIVE)
--- NOTE | 2020-05-05 11:41 | NUR ---
DR OLSON AT BEDSIDE FOR ASSESSMENT AND NEW ORDERS RECEIVED. PHYSICIAN STATES HE IS GOING TO TALK TO RADIOLOGY ABOUT POSSIBLE PARACENTESIS TODAY AND WAIT TO EAT OR DRINK TILL AFTER WE ARE AWARE OF POC.
[2020-05-05 12:08] LABS: TRICYCLIC ANTIDEPRESS URINE NEGATIVE
--- NOTE | 2020-05-05 14:11 | NUR ---
SPOKE TO DR OLSON ABOUT LA AND IVFs GIVEN IN ED. PHYSICIAN STATES DO NOT GIVE MORE BOLUSES BUT GIVE ONE LITER AT 150ML/HR. AWAITING FOR ORDERS. BLANCHE AT BEDSIDE FOR PICC LINE PLACEMENT. ALSO DISCUSSED WITH DR OLSON ABOUT VTE ORDERS.
--- NOTE | 2020-05-05 16:39 | NUR ---
STARTED PARACENTESIS AT [address] MCLEOD RADIOLOGIST WITH US TECH. DONE ON LEFT MID QUAD. PULLED OFF 7.9L. PT TOLERATED WELL. PT STATES STILL IS PAINFUL BUT DOES FEEL LESS "BLOATED." VSS. LARGE BANDAID PLACED ON SITE.
--- NOTE | 2020-05-05 18:28 | NUR ---
NOTIFIED ANDERSON NICE OF BLOOD CULTURE WITH GRAM NEGATIVE RODS. PA REQUESTS TO CONSULT INFECTIOUS DISEASE.
--- NOTE | 2020-05-05 20:00 | NUR ---
Pt reports sharp pain in back of lower extremities bilaterally, no other s/sx of DVT, pt also reports that pain in shins "feels like hollis splints". Scleral jaundice noted as well as generalized skin jaundice. Pts hand bilingual executive assistant are weak bilaterally. Tremors noted more prominent with exertion although when laying in bed at this time tremors are felt by this nurse. Pt reports difficulty breathing, encouraged pt to elevated HOB, pt noted slight improvement with this.
[2020-05-06] VITALS (376 sets, daily range): BP systolic 112–133; BP diastolic 51–95; PULSE 107–121; TEMP 98–99; O2SAT 73–100
--- NOTE | 2020-05-06 02:00 | NUR ---
Pt reported a burning sensation when NS was pushed through IV earlier in the shift. IV was saline locked to INT. Was able to remove it at this time. No other visual signs of infiltration noted at this time.
--- NOTE | 2020-05-06 04:30 | NUR ---
Pts Ativan held at this time due to noted increased confusion with conversation. Pt is able to answer orientation questions and is alert although will make comments not consistent with the question being ask (ex: whats your pain? pt responded, my sister was decorating the [place] tree.) Pt has napped for short periods of time through out this shift although is noted to continue in this state for the last hour or so. Will hold this dose and reassess for the next CIWA scoring.
[2020-05-06 05:43] LABS: MEAN CELL VOLUME 100 fl (80.0-100.0); MEAN CORPUSCULAR HGB CONC 35 g/dl (33.0-37.0); MEAN PLATELET VOLUME 10.4 fl (7.4-10.4); PLATELET COUNT 101 K/mm3 (130-400); RED BLOOD COUNT 2.64 M/mm3 (4.20-5.60); REDCELL DISTRIBUTION WIDTH-CV 19.4 % (11.5-14.5)
[2020-05-06 05:48] LABS: HEMATOCRIT 26.4 % (42.0-52.0); MEAN CORPUSCULAR HEMOGLOBIN 35 pg (27.0-31.0)
[2020-05-06 05:50] LABS: HEMOGLOBIN 9.3 g/dl (13.5-18.0)
[2020-05-06 05:55] LABS: ALBUMIN 2.3 gm/dL (3.5-5.0); BILIRUBIN,TOTAL 9.3 mg/dL (0.0-1.0); CREATININE, serum 0.77 (0.66-1.25); POTASSIUM 4.6 mmol/L (3.4-5.0); TOTAL PROTEIN 5.8 gm/dL (6.4-8.2)
[2020-05-06 05:56] LABS: PROTHROMBIN TIME 34.3 SECONDS (9.7-12.8)
[2020-05-06 06:11] LABS: BAND 30 % (0-10); EOSINOPHIL 2 % (0-4); LYMPHOCYTE 11 % (20.0-51.0); NEUTROPHILS 50 % (42.0-75.2)
[2020-05-06 06:17] LABS: PLATELET ESTIMATE DECREASED (NORMAL)
[2020-05-06 06:19] LABS: ANISOCYTOSIS 2+; SCHISTOCYTES 1+
--- NOTE | 2020-05-06 06:30 | NUR ---
Pt has been calling to get out of bed every 30-60 minutes since approximately 0200. Pt reports "its like my bowel are spasming", discussion was had with pt regarding the increased in pain medication which could be causing some constipation and ideas in order to resolve that if that is the cause. Pt denies and wanted to continue to get up to the toilet to try to go. Conversation with confusion still noted although was still able to answer all orientation questions. Continued to hold Ativan dosing for the confusion concern.
--- NOTE | 2020-05-06 07:30 | NUR ---
Report provided to Pool HERNANDEZ.
--- NOTE | 2020-05-06 12:00 | NUR ---
at bedside. He wantd to transfer patient to medical floor, d/c IVF, and added an H&H for this evening at 1700 to monitor it.
--- NOTE | 2020-05-06 14:28 | NUR ---
Plan to return home with is mother Danitza or [phone]. Patient reports that resides with his Mother and younger sister. Patient reports that he uses circulation bands for his leg at home. Client has some delay in talking with SW. Sw had to prompt several times for contact # for mother and patient keep giving Zip Code. Patient report that that he is seeing a Therapist Dr. Brooklyn Wilde for Mental health and Substance abuse at [facility]. Patient reports that he has seen Dr. Rubio in the past and Dr. Fernandez as PCP. Patient reports that he has his own transportation. Patient reports that he uses [employer]. Patient reports that he wants supports with medications management or drinking. SW talked about services available to patient. Will continue to follow.
[2020-05-06 17:15] LABS: HEMATOCRIT 26.4 % (42.0-52.0); HEMOGLOBIN 9.3 g/dl (13.5-18.0)
--- NOTE | 2020-05-06 17:15 | NUR ---
Gave report to DAVID Felton on medical floor, Will bring patient up shortly.
--- NOTE | 2020-05-06 17:54 | NUR ---
Patient up to room 314 by wheelchair from ICU. A&Ox3. VSS. PICC CDI. Reports discomfort in abdomen. Nurse oriented patient to room and call light. No further needs expressed from the patient. Call light within reach
[2020-05-07] VITALS (9 sets, daily range): BP systolic 110–134; BP diastolic 50–68; PULSE 112–122; TEMP 98.1–99.7
[2020-05-07 05:34] LABS: MEAN CELL VOLUME 99 fl (80.0-100.0); MEAN CORPUSCULAR HGB CONC 36 g/dl (33.0-37.0); MEAN PLATELET VOLUME 11.3 fl (7.4-10.4); PLATELET COUNT 106 K/mm3 (130-400); RED BLOOD COUNT 2.58 M/mm3 (4.20-5.60); REDCELL DISTRIBUTION WIDTH-CV 18.9 % (11.5-14.5)
[2020-05-07 05:35] LABS: HEMATOCRIT 25.6 % (42.0-52.0); HEMOGLOBIN 9.1 g/dl (13.5-18.0); MEAN CORPUSCULAR HEMOGLOBIN 35 pg (27.0-31.0)
[2020-05-07 05:39] LABS: ALBUMIN 2.3 gm/dL (3.5-5.0); BILIRUBIN,TOTAL 9.6 mg/dL (0.0-1.0); CREATININE, serum 0.73 (0.66-1.25); TOTAL PROTEIN 5.8 gm/dL (6.4-8.2)
[2020-05-07 05:52] LABS: PROTHROMBIN TIME 33.6 SECONDS (9.7-12.8)
[2020-05-07 06:16] LABS: BAND 15 % (0-10); EOSINOPHIL 4 % (0-4); HYPOCHROMIA 1+; LYMPHOCYTE 12 % (20.0-51.0); NEUTROPHILS 61 % (42.0-75.2)
[2020-05-07 06:17] LABS: ANISOCYTOSIS 1+; PLATELET ESTIMATE DECREASED (NORMAL)
[2020-05-07 06:18] LABS: OVALOCYTES 1+
--- NOTE | 2020-05-07 09:08 | NUR ---
PT DROWSY, PT ORIENTED, PT FALLING ALSEEP DURING MEDICATION ADMINISTRATION. PT UNABLE TO HOLD ONTO HIS PILLS, PLACED PILLS IN HIS MOUTH FOR HIM, PT SPILLED COFFEE ON BED WHEN ATTEMPTING TO DRINK IT. PT REPORTING PAIN IN ABD 3/10, UNABLE TO GIVE DESCRIPTION OF PAIN. PT HAS SET OFF BED ALARM X2 IN AM. YESICA HERNANDEZ REPORTED POSSIBLE BLOOD IN STOOL BUT PT FLUSHED IT TOO FAST TO BE SURE. PT WEAK MOVING AROUND IN BED. NO OTHER NEEDS.
--- NOTE | 2020-05-07 10:00 | NUR ---
OBTAINED ATIVAN FOR PT PER ETOH PROTOCOL, PT SETTING OFF BED ALARM, TRYING TO GET TO BATHROOM, UNSTEADY ON FEET WITH AMBULATION. PT GOWN WET, LEAKING YELLOW FLUID FROM PARACENTESIS SITE, SITE REDRESSED, GOWN CHANGED, NO OTHER NEEDS.
--- NOTE | 2020-05-07 10:50 | NUR ---
SW spoke with patient's RN. Patient is currently detoxing and will not discharge at this time.
--- NOTE | 2020-05-07 17:05 | NUR ---
PT REPORTING ABD PAIN IN AFTERNOON NOT RESOLVED WITH ROXICODONE, SOME YELLOW DRAINAGE FROM PARACENTESIS SITE PRESENT AND POTHURU AWARE. PT DROWSY BUT ORIENTED X4, PT IMPULSIVE GETTING UP ON HIS OWN AND SETTING OFF BED ALARM DUE TO FREQUENT URGES FOR BM. PT ON ZOSYN ANTIBIOTIC, CURRENTLY INFUSING, SCORING FROM 4-8 TODAY ON ETOH SCALE. NOT EATING MUCH OF MEALS, NO OTHER NEEDS.
[2020-05-07 18:24] LABS: HEMOGLOBIN 9.3 g/dl (13.5-18.0)
--- NOTE | 2020-05-07 19:49 | NUR ---
PT ASSESSMENT COMPLETED. PT STABLE AT THIS TIME. STATES PAIN IS A 4/10. WAS ABLE TO EAT HALF OF HIS DINNER, HAS CONTINUED TO HAVE DIARRHEA. NO OTHER CONCERNS AT THIS TIME. PT OTHERWISE STABLE. WILL CONTINUE TO MONITOR. CALL LIGHT WITHIN REACH, BED ALARM ON.
[2020-05-08] VITALS (12 sets, daily range): BP systolic 100–144; BP diastolic 51–82; PULSE 88–124; TEMP 97.5–99.2
[2020-05-08 04:36] LABS: BASO # 0.1 (0.0-0.2); BASO % 0.4 % (0.0-2.0); EOS # 0.2 (0.0-0.7); EOS % 1.2 % (0-4.0); GRAN # 13.9 (1.4-6.5); GRAN % 70.3 % (42.2-75.2); LYMPH % 10.3 % (20.0-51.0); MEAN CELL VOLUME 101 fl (80.0-100.0); MEAN CORPUSCULAR HGB CONC 35 g/dl (33.0-37.0); MEAN PLATELET VOLUME 10.7 fl (7.4-10.4); MONO # 3.3 (0.1-0.6); MONO % 16.4 % (1.7-9.3); PLATELET COUNT 120 K/mm3 (130-400); RED BLOOD COUNT 2.77 M/mm3 (4.20-5.60); REDCELL DISTRIBUTION WIDTH-CV 18.4 % (11.5-14.5)
[2020-05-08 04:50] LABS: ALBUMIN 2.4 gm/dL (3.5-5.0); BILIRUBIN,TOTAL 11.8 mg/dL (0.0-1.0); CREATININE, serum 0.7 (0.66-1.25); TOTAL PROTEIN 6.1 gm/dL (6.4-8.2)
[2020-05-08 04:51] LABS: INR 2.6 (0.8-3.0); PROTHROMBIN TIME 29.3 SECONDS (9.7-12.8)
[2020-05-08 04:57] LABS: HEMATOCRIT 27.9 % (42.0-52.0); HEMOGLOBIN 9.8 g/dl (13.5-18.0); MEAN CORPUSCULAR HEMOGLOBIN 35 pg (27.0-31.0)
[2020-05-08 05:36] LABS: TROPONIN-I < 0.012 ng/mL (0.000-0.035)
--- NOTE | 2020-05-08 08:40 | NUR ---
PT DROWSY, MEDICATIONS GIVEN, VITALS REVIEWED, ATIVAN 1MG GIVEN PER DETOX PROTOCOL, BED ALARM SET, PT REFUSING MEALS STATING HE HAS NO APPETITE. NO OTHER NEEDS AT THIS TIME.
--- NOTE | 2020-05-08 09:23 | NUR ---
ATTEMPTED TO NOTIFIY JORGE VIA CELL NUMBER AND UNABLE TO REACH HIM, CALLED HIS OFFICE AND LEFT A VOICEMAIL FOR HIS NURSE TO GIVE ME A CALL. PT MOVED TO ROOM 313 TO BE CLOSER TO THE INDUCTION MACHINE OPERATOR SINCE PT CAN TURN OFF BED ALARM NOW. STILL IMPULSIVE AND GETTING UP ON HIS OWN.
--- NOTE | 2020-05-08 14:09 | NUR ---
PT COULD NOT FIND TOILET IN BATHROOM, TRIED TO SQUAT ONTO FLOOR, PT COULD NOT FIND TOILET PAPER ON WALL, HANDED IT TO HIM AND PT WAS FEELING ON THE FLOOR TO GRAB MORE. PT HAVING FREQUENT BM'S.
--- NOTE | 2020-05-08 17:22 | NUR ---
PT UP MANY TIMES IN DAY HAVING MUCOUS LIKE BM, STOOL SAMPLE COLLECTED FOR CDIFF TESTING, CONTACT PRECAUTIONS IN PLACE, PT REPORTING PAIN IN ABD NOT HELPED WITH MEDICATION, PT INC CONFUSED AND DISORIENTED, PT FAMILY MEMBER AND MOM UPDATED DURING DAY. INFORMED PT HIS MOTHER WOULD LIKE TO TALK TO HIM, PT SEEMED UNINTERESTED AT THIS TIME. PT SCORING ON ETOH SCALE RECIEVING ATIVAN Q2H, NO OTHER NEEDS.
[2020-05-08 19:12] LABS: CLOSTRIDIUM DIFF A/B NEG
[2020-05-08 19:13] LABS: CLOSTRIDIUM DIFF A/B INTERP No C.diff present
[2020-05-09] VITALS (11 sets, daily range): BP systolic 116–139; BP diastolic 54–65; PULSE 114–125; TEMP 97.8–98.6
--- NOTE | 2020-05-09 01:32 | NUR ---
PT IS VERY ACTIVE TONIGHT. VS HAVE HAD SEVERAL OUTSTANDING, PT CONTINUES TO REMAIN TACHYCARDIC. HE IS STILL VERY IMPULSIVE, AND VERY CONFUSED. DURING THIS SHIFT, PT HAS BEEN TAKEN TO THE BATHROOM BECAUSE HE "NEEDS TO GO", AND THEN WHEN WE ARE IN THE BATHROOM, HE FORGETS TO PULL DOWN HIS BRIEF. THIS PATIENT IS NOT STABLE, AND POSES A RISK TO HIMSELF AND THE NURSING STAFF D/T HIS IMPULSIVITY. PT HAS SCORED BETWEEN 6&8 ON THE CIWA PROTOCOL. WILL CONTINUE TO MONITOR CLOSELY. NO FURTHER CONCERNS AT THIS TIME. PT IN BED, BED ALARM ON AND CALL LIGHT WITHIN REACH.
--- NOTE | 2020-05-09 06:35 | NUR ---
PT IS HAVING INCREASING CONFUSION. HE GETS UP TO GO TO THE BATHROOM, GETS THERE, AND THEN WANTS TO WALK BACK TO BED. THE PATIENT IS VERY OUT OF IT AT THIS TIME. BED ALARMS UTILIZED, FALL PRECAUTIONS IN PLACE. NO FURTHER CONCERNS AT THIS TIME, WILL ENDORSE TO DAY NURSE.
--- NOTE | 2020-05-09 09:58 | NUR ---
Assessment complete. Patient has been up to restroom multiple times this morning, attempting to get to up without help, setting off bed alarm. Patient is very confused, impulsive and unable to follow directions. Occationally patient will go into the restroom and not go to the bathroom at all. Patient took Po meds well. Fall precautions are in place. Detox protocol being used. Will continue to monitor. Bed alarm set.
[2020-05-09 10:47] LABS: HEMOGLOBIN 10.2 g/dl (13.5-18.0); MEAN CELL VOLUME 99 fl (80.0-100.0); MEAN CORPUSCULAR HEMOGLOBIN 35 pg (27.0-31.0); MEAN CORPUSCULAR HGB CONC 36 g/dl (33.0-37.0); MEAN PLATELET VOLUME 10.5 fl (7.4-10.4); PLATELET COUNT 144 K/mm3 (130-400); RED BLOOD COUNT 2.89 M/mm3 (4.20-5.60); REDCELL DISTRIBUTION WIDTH-CV 18.3 % (11.5-14.5)
[2020-05-09 10:48] LABS: HEMATOCRIT 28.5 % (42.0-52.0)
[2020-05-09 10:56] LABS: ALBUMIN 2.5 gm/dL (3.5-5.0); BILIRUBIN,TOTAL 11.7 mg/dL (0.0-1.0); CALCIUM 7.8 mg/dL (8.4-10.2); CREATININE, serum 0.93 (0.66-1.25); POTASSIUM 3.5 mmol/L (3.4-5.0); TOTAL PROTEIN 6.2 gm/dL (6.4-8.2)
[2020-05-09 11:24] LABS: ANISOCYTOSIS 2+; BAND 3 % (0-10); LYMPHOCYTE 10 % (20.0-51.0); NEUTROPHILS 70 % (42.0-75.2); PLATELET ESTIMATE NORMAL (NORMAL)
[2020-05-09 11:25] LABS: TARGET CELLS 1+
[2020-05-09 11:30] LABS: BURR CELLS 1+
--- NOTE | 2020-05-09 18:02 | NUR ---
Patient has remained confused, impulsive, and disoriented through the day. He is still unable to follow most commands and gets up to the restroom even when he does not have to. He is very edematous, even in his abd, this is noted. Patient does not have a steady gait and struggles to keep his eyes open while communicating and ambulating. Pt has only recieved ativan twice during day shift. Providers are aware of pts odd mental state compared to other stays here in the hospital. Family has been updated. Continuing to monitor. Fall precautions in place. Bed alarm set.
--- NOTE | 2020-05-09 20:45 | NUR ---
Initial shift assessment done-- pt is very lethargic, confused, unable to follow commands-- trying to get out of bed every few minutes-- has been up over 10 times in the past hour-- can walk into bathroom with assist- his eyes are closed,tries to sit on the floor next to toilet-- is pulling pants up instead on down to use the bathroom- does not follow commands-- voided dardk orange colored urine x1-- all the other times up with no results. tele on. una,,, on detox protocol--will give Ativan 1 mg per protocol
[2020-05-10] VITALS (11 sets, daily range): BP systolic 106–134; BP diastolic 43–89; PULSE 109–120; TEMP 97.7–98.3
--- NOTE | 2020-05-10 00:10 | NUR ---
Pt continues to try and get up to bathroom every few minutes-- very very unsteady, lethargic-- did do a bladder scan due to no urine most of the times he gets up-- states > 700 on scanner, did call STAMP PAD MAKER and order for straight cath,, straight cathed for 150cc , did scan again and said >1000--so ? getting probably ascites fluid recorded-- Rosanna BOWERS aware- ,, did let Rosanna know about him being so lethargic, resp high 20,s,,
--- NOTE | 2020-05-10 05:48 | NUR ---
Has been resting for the past 1 hour,, otherwise was awake most of the night-- was given ativan IV x2 and Ativan p.o x1 during my shift, also one dose of roxicodone given for pain.
[2020-05-10 07:34] LABS: MEAN CELL VOLUME 97 fl (80.0-100.0); MEAN CORPUSCULAR HGB CONC 36 g/dl (33.0-37.0); MEAN PLATELET VOLUME 10.6 fl (7.4-10.4); PLATELET COUNT 123 K/mm3 (130-400); RED BLOOD COUNT 2.81 M/mm3 (4.20-5.60); REDCELL DISTRIBUTION WIDTH-CV 18.1 % (11.5-14.5)
[2020-05-10 07:47] LABS: HEMATOCRIT 27.3 % (42.0-52.0); HEMOGLOBIN 9.8 g/dl (13.5-18.0); MEAN CORPUSCULAR HEMOGLOBIN 35 pg (27.0-31.0)
[2020-05-10 07:49] LABS: ALBUMIN 2.4 gm/dL (3.5-5.0); BILIRUBIN,TOTAL 10.6 mg/dL (0.0-1.0); CALCIUM 7.9 mg/dL (8.4-10.2); CREATININE, serum 1.34 (0.66-1.25); MAGNESIUM 1.8 mg/dL (1.6-2.3); POTASSIUM 3.8 mmol/L (3.4-5.0); TOTAL PROTEIN 6.1 gm/dL (6.4-8.2)
[2020-05-10 09:50] LABS: ANISOCYTOSIS 1+; BAND 25 % (0-10); EOSINOPHIL 1 % (0-4); LYMPHOCYTE 4 % (20.0-51.0); MYELOCYTE 1 % (0-0); NEUTROPHILS 60 % (42.0-75.2); PLATELET ESTIMATE DECREASED (NORMAL); TARGET CELLS 1+; TEAR DROP CELLS 1+
--- NOTE | 2020-05-10 19:13 | NUR ---
patient lethargic, unoriented. somnolence mostly all day. on room air 90%, tachypnea RR 30's, HR 100's attention span before going back to sleep is 2-5 seconds. patient incontinent of stool, urine. diet was advance from clear liquid to general. wbc 20.5. RN called father with update and plan of care. marlene corona. picc on radhika. Bowel moment today x1. resting in bed at this moment.
--- NOTE | 2020-05-10 19:38 | NUR ---
PATIENT WAS RECEIVED IN BED ASLEEP.NO NEEDS AT THIS TIME
--- NOTE | 2020-05-10 22:15 | NUR ---
Patient scoring 8 on detox protocol. Patient has increased confusion, wakes to tactile stimuli but very drowsy, unable to speak in sentences. SPO2 90-93% on room air. Respiratory rate in the 30s. Started on oxygen at 2 L/min via NC. Called Maci and updated on patient. Notified her that on detox protocol he should receive 1 mg IV Ativan, but didn't feel comfortable giving mediation with patient's condition. Maci and Rosanna talked and stated to hold off on giving Ativan at this time, and to continue to monitor patient.
[2020-05-11] VITALS (169 sets, daily range): BP systolic 114–130; BP diastolic 48–70; PULSE 110–128; TEMP 97.3–98.9; O2SAT 53–96
--- NOTE | 2020-05-11 05:22 | NUR ---
PATIENT IS DROWSY,ON O2 THERAPY VIA NC AT 5L.DENIES PAIN.ON CIWA.REMAINS WEAK.NO NEEDS AT THIS TIME.
--- NOTE | 2020-05-11 06:14 | NUR ---
Around 0500, this nurse received a call stating that telemetry was showing possible A-fib RVR vs V-tach. Had Called RT for EKG. EKG showed sinus tachycardia. During EKG, telemetry called and stated that rhythm had resolved and patient back in normal sinus. VS during episode: 97.8 113 22 129/55 95% on oxygen at 5 L/min via NC.
[2020-05-11 07:03] LABS: HEMATOCRIT 27.5 % (42.0-52.0); HEMOGLOBIN 10.2 g/dl (13.5-18.0); MEAN CELL VOLUME 97 fl (80.0-100.0); MEAN CORPUSCULAR HEMOGLOBIN 36 pg (27.0-31.0); MEAN CORPUSCULAR HGB CONC 37 g/dl (33.0-37.0); MEAN PLATELET VOLUME 11.1 fl (7.4-10.4); PLATELET COUNT 111 K/mm3 (130-400); RED BLOOD COUNT 2.85 M/mm3 (4.20-5.60); REDCELL DISTRIBUTION WIDTH-CV 17.8 % (11.5-14.5)
[2020-05-11 07:08] LABS: ALBUMIN 2.4 gm/dL (3.5-5.0); BILIRUBIN,TOTAL 9.2 mg/dL (0.0-1.0); CALCIUM 7.9 mg/dL (8.4-10.2); CREATININE, serum 1.43 (0.66-1.25); POTASSIUM 3.4 mmol/L (3.4-5.0); TOTAL PROTEIN 6.3 gm/dL (6.4-8.2)
[2020-05-11 07:50] LABS: BAND 2 % (0-10); EOSINOPHIL 1 % (0-4); LYMPHOCYTE 9 % (20.0-51.0); NEUTROPHILS 80 % (42.0-75.2)
[2020-05-11 07:51] LABS: ANISOCYTOSIS 1+; PLATELET ESTIMATE DECREASED (NORMAL)
[2020-05-11 07:52] LABS: TARGET CELLS 1+
[2020-05-11 08:25] LABS: INR 2.6 (0.8-3.0); PROTHROMBIN TIME 29.3 SECONDS (9.7-12.8)
--- NOTE | 2020-05-11 15:15 | NUR ---
SW attended clinical rounds. The patient's oxygen needs have increased to 5 liters. His creat continues to rise and nephrology was consulted. SW to continue to follow.
--- NOTE | 2020-05-11 16:17 | NUR ---
The patient is to transfer down to the ICU. IMANI contacted and updated the patient's mother, Danitza. Danitza reports that the patient is not and does not have any children. His father, Barrie (ph#[phone]), is alive. IMANI informed Danitza how her and the patient's father are the patient's next of kin and decision maker. Danitza verbalized understanding.
[2020-05-11 16:30] LABS: COLLECTION METHOD CLEAN CATCH
[2020-05-11 16:48] LABS: HYALINE CAST >12 /lpf; MUCOUS Present /lpf; PH 5 (5-8); SQUAMOUS EPITHELIAL 0-2 /hpf; URINE APPEARANCE Cloudy; URINE BACTERIA None Seen /hpf; URINE BILIRUBIN Negative (NEGATIVE); URINE BLOOD Negative (NEGATIVE); URINE COLOR Amber; URINE GLUCOSE Negative (NEGATIVE); URINE KETONE Negative (NEGATIVE); URINE LEUKOCYTE ESTERASE Trace (NEGATIVE); URINE NITRATE Negative (NEGATIVE); URINE PROTEIN(semi-quant) 1+ (NEGATIVE); URINE RBC 0-2 /hpf; URINE UROBILINOGEN Negative (NEGATIVE)
[2020-05-11 17:06] LABS: URINE PROTEIN:CREAT RATIO 0.09 (0.00-0.14)
--- NOTE | 2020-05-11 17:47 | NUR ---
Recieved report from Tyesha HERNANDEZ.
[2020-05-11 17:52] LABS: CREATININE, serum 1.41 (0.66-1.25); FRACTIONAL EXCRETION OF NA+ 0.36 %; SODIUM 136 mmol/L (137-145)
--- NOTE | 2020-05-11 18:15 | NUR ---
Arrives to ICU via bed from medical floor with RN x2 at side. Transfers to ICU bed and monitor applied. Patient very aggitated, restless in bed. Parents here, at bedside after settled into bed. Explained visiting restrictions/allowances to parents, all very agreeable. Parents will stay until 1999 to visit and if the patient's status changes or they decide to go to comfort care, they will be allowed to come back.
--- NOTE | 2020-05-11 19:04 | NUR ---
Patient became restly, constantly request to use the bathroom . Bladder scanned patient, >933 fluids in abdomen. ANDERSON Rutherford ordered chavez placement. chavez in place, urine output of 200ML. respiratory technician repot Vtach, EKG was ordered. patient demand for 02 increased from 5L to 10L HFNC at 91%. family visited at bedside as authorized by Hospitalist. BUMEX 1G IV order once. Dr Lo discussed POC with family. Patient transferred to ICU 02.
--- NOTE | 2020-05-11 21:39 | NUR ---
Patient showing increased restlesness; Ativan administered. Patient incontinent of stool. Rhea-care and bed change performed.
--- NOTE | 2020-05-11 22:38 | NUR ---
Patient continues to be restless in bed. This nurse asked patient if he was having any pain. Patient stated "yea". Hospitalist called and requested to order PRN pain medicaiton. Hospitalist to review chart; awaiting further orders.
--- NOTE | 2020-05-11 23:45 | NUR ---
This nurse was notfied by another RN, Arnulfo, that patient's heart rate was in the 30's. This nurse entered patient's room and observed him having infrequent agonal breathing. Apical pulse was not present with auscultation. Notified hospitalist. Hospitalist verified at 2335 that no pulse was present. Time of called at 2335. Hospitalist will call family at this time.
--- NOTE | 2020-05-12 01:45 | NUR ---
Family present at bedside with patient for approximately 1 hr. Prior to leaving, family discussed home wishes with housekeeping assistant. All patient belongings sent home with patient's mother.
--- NOTE | 2020-05-12 02:40 | NUR ---
home attendent here to transport patient. Paperwork signed and a copy sent with attendent.
== END 2020-05-12 02:59 | disposition expired | DRG 432 ==
LOC: COL.ER 04:31 → MEDICAL 06:12 → ICU 06:12 → MEDICAL 05-06 15:30 → ICU 05-06 15:30 → MEDICAL 05-06 15:30 → ICU 05-11 16:40
PROVIDERS: Emergency Medicine; Internal Medicine Infectious Disease; Internal Medicine Nephrology; Physician Assistant; Student in an Organized Health Care Education/Training Program; ADMIT Internal Medicine
PROC: 02HV33Z Insertion of Infusion Device into Superior Vena Cava, Percutaneous Approach (ICD-10-PCS; principal; 2020-05-05)
PROC: 0W9G3ZZ Drainage of Peritoneal Cavity, Percutaneous Approach (ICD-10-PCS; 2020-05-05)
DX: K70.31 Alcoholic cirrhosis of liver with ascites (principal); K65.2 Spontaneous bacterial peritonitis; J96.01 Acute respiratory failure with hypoxia; G93.41 Metabolic encephalopathy; E87.2 Acidosis; N17.9 Acute kidney failure, unspecified; E87.1 Hypo-osmolality and hyponatremia; Z66 Do not resuscitate; K70.11 Alcoholic hepatitis with ascites; K76.0 Fatty (change of) liver, not elsewhere classified; F10.20 Alcohol dependence, uncomplicated; R00.0 Tachycardia, unspecified; D64.9 Anemia, unspecified; K21.9 Gastro-esophageal reflux disease without esophagitis; B96.20 Unspecified Escherichia coli [E. coli] as the cause of diseases classified elsewhere; F31.9 Bipolar disorder, unspecified; E83.42 Hypomagnesemia; G43.909 Migraine, unspecified, not intractable, without status migrainosus; F17.210 Nicotine dependence, cigarettes, uncomplicated; R79.1 Abnormal coagulation profile
CPT/HCPCS: 99223-AI; 99232-AI; 99233-AI; C1751; J0696; J1940; J2060; J2270; J2405; J2543; J3360; J3370; J3475; J7030; J7050; Q9967